=== PATIENT | female | born 1990 | race African-American/Black ===

== ENCOUNTER 2016-09-25 11:16 | Emergency (ER) | payer MEDICAID, OTHER ==
[~2016-09-25] VITALS: Ht 162.6 cm; Wt 72.0 kg
[~2016-09-25 11:16] MED LIST: PREN1CAP20 PO
[2016-09-25 11:18] VITALS: BP 130/67; PULSE 76; RESP 16; TEMP 99; O2SAT 100
--- NOTE | 2016-09-25 11:55 | PD ---
HPI Chief Complaint: Abdominal Pain Time Seen by Provider: 11:52 Travel History International Travel<30 days: No Contact w/Intl Traveler<30days: No Traveled to known affect area: No History of Present Illness HPI 26-year-old female with history of no significant past medical issues, presents to the ER today for 2 weeks history of intermittent pelvic discomfort which she states is not currently hurting now. She states that she had a positive test last week, but then went to the health department and her urine test there was negative several days ago. She has been having some nausea and intermittent vomiting and diarrhea. She denies any fevers, or any other symptoms. Modifying Factors: None Associated Signs & Symptoms: Nausea, vomiting, diarrhea, lower abdominal pains intermittently for about 2 weeks Risk Factors: None PFSH Past Medical History ADHD: No Depression: Yes Cancer: No Cardiovascular Problems: No Developmental Delay: No Diabetes: No Diminished Hearing: No Headaches: No Psychiatric: Yes (BIPOLAR AND DEPRESSION BY HX) Migraines: No Seizures: Yes (BY HX AGE 15) Thyroid Disease: No Ulcer: No ?: Unknown LMP: 07/2016 : 0 Para: 2 : 0 Past Surgical History Appendectomy: No Cholecystectomy: No Other Surgery: No Social History Alcohol Use: No Tobacco Use: Yes (approximates 3 cigarettes daily throughout her entire ) Substance Use: Yes (MARIJUANA A MONTH AGO) Allergies-Medications (Allergen,Severity, Reaction): Coded Allergies: Pea (Verified Allergy, Severe, Rash, 01/19/15) Potato (Verified Allergy, Severe, Rash, 01/19/15) Reported Meds & Prescriptions Reported Meds & Active Scripts Active Prenate Mini 18-0.6-0.4-350 mg ( W/O Vit A W/ Fe Carbo) 1 Cap Cap 1 Tab PO DAILY Review of Systems Except as stated in HPI: all other systems reviewed are Neg Physical Exam Narrative GENERAL: Well-developed young after [place] female patient currently not in acute distress. Awake and oriented 3. SKIN: Focused skin assessment warm/dry. HEAD: Atraumatic. Normocephalic. EYES: Pupils equal and round. No scleral icterus. No injection or drainage. ENT: No nasal bleeding or discharge. Mucous membranes pink and moist. NECK: Trachea midline. No JVD. CARDIOVASCULAR: Regular rate and rhythm. No murmur appreciated. RESPIRATORY: No accessory muscle use. Clear to auscultation. Breath sounds equal bilaterally. GASTROINTESTINAL: Abdomen soft, non-tender, nondistended. Hepatic and splenic margins not palpable. Benign. MUSCULOSKELETAL: No obvious deformities. No clubbing. No cyanosis. No edema. NEUROLOGICAL: Awake and alert. No obvious cranial nerve deficits. Motor grossly within normal limits. Normal speech. PSYCHIATRIC: Appropriate mood and affect; insight and judgment normal. Data Data Last Documented VS Vital Signs Date Time Temp Pulse Resp B/P Pulse Ox O2 Delivery O2 Flow Rate FiO2 09/25/16 11:18 99.0 76 16 130/67 100 Room Air Orders Complete Blood Count With Diff (09/25/16 11:52) Comprehensive Metabolic Panel (09/25/16 11:52) Beta Hcg (Quant/Titer) (09/25/16 11:52) Urinalysis - C+S If Indicated (09/25/16 12:53) Labs Laboratory Tests Test 09/25/16 09/25/16 12:00 13:08 White Blood Count 4.7 TH/MM3 Red Blood Count 4.50 MIL/MM3 Hemoglobin 12.3 GM/DL Hematocrit 36.3 % Mean Corpuscular Volume 80.7 FL Mean Corpuscular Hemoglobin 27.4 PG Mean Corpuscular Hemoglobin 34.0 % Concent Red Cell Distribution Width 15.0 % Platelet Count 300 TH/MM3 Mean Platelet Volume 7.9 FL Neutrophils (%) (Auto) 51.3 % Lymphocytes (%) (Auto) 37.9 % Monocytes (%) (Auto) 6.1 % Eosinophils (%) (Auto) 4.3 % Basophils (%) (Auto) 0.4 % Neutrophils # (Auto) 2.4 TH/MM3 Lymphocytes # (Auto) 1.8 TH/MM3 Monocytes # (Auto) 0.3 TH/MM3 Eosinophils # (Auto) 0.2 TH/MM3 Basophils # (Auto) 0.0 TH/MM3 CBC Comment DIFF FINAL Differential Comment Sodium Level 140 MEQ/L Potassium Level 3.7 MEQ/L Chloride Level 106 MEQ/L Carbon Dioxide Level 28.0 MEQ/L Anion Gap 6 MEQ/L Blood Urea Nitrogen 7 MG/DL Creatinine 0.64 MG/DL Estimat Glomerular Filtration 137 ML/MIN Rate Random Glucose 86 MG/DL Calcium Level 8.6 MG/DL Total Bilirubin 0.3 MG/DL Aspartate Amino Transf 11 U/L (AST/SGOT) Alanine Aminotransferase 19 U/L (ALT/SGPT) Alkaline Phosphatase 56 U/L Total Protein 8.2 GM/DL Albumin 4.0 GM/DL Human Chorionic Gonadotropin, 13 MIU/ML Quant Urine Color YELLOW Urine Turbidity HAZY Urine pH 7.0 Urine Specific [place] 1.023 Urine Protein TRACE mg/dL Urine Glucose (UA) NEG mg/dL Urine Ketones NEG mg/dL Urine Occult Blood TRACE Urine Nitrite NEG Urine Bilirubin NEG Urine Urobilinogen LESS THAN 2.0 MG/DL Urine Leukocyte Esterase TRACE Urine RBC 6 /hpf Urine WBC 1 /hpf Urine Squamous Epithelial 8 /hpf Cells Urine Mucus FEW /lpf Microscopic Urinalysis Comment CULT NOT INDICATED MDM Medical Decision Making Medical Screen Exam Complete: Yes Emergency Medical Condition: Yes Medical Record Reviewed: Yes Interpretation(s) Laboratory Tests Test 09/25/16 12:00 Eosinophils (%) (Auto) 4.3 % (0.0-4.0) Aspartate Amino Transf 11 U/L (15-37) (AST/SGOT) Human Chorionic Gonadotropin, 13 MIU/ML (0-5) Quant Differential Diagnosis Nausea, vomiting, lower abdominal pains, diarrheaUTI versus versus gastroenteritis Narrative Course Abdomen is soft and benign, and I do not suspect an acute intra-abdominal process. She has not had vomiting today. UA did not show signs UTI. Her urine test was trace positive and her hCG is 13. At this point, it appears that she may have an early . My plan would be to release her with follow-up to health department for and follow-up with . Return for any worsening in pain, bleeding, and as needed. An ectopic cannot be ruled out at this point, numbers would indicate that she is fairly early. She should return for any worsening in pain and bleeding. Diagnosis Primary Impression: Abdominal pain in Disposition: 01 DISCHARGE HOME Condition: Stable Sara Vivar MD September 25, 2016 11:55
[2016-09-25 12:22] LABS: AUTOMATED NEUTROPHIL # 2.4 TH/MM3 (1.8-7.7); BASOPHIL % 0.4 % (0.0-2.0); EOSINOPHIL # 0.2 TH/MM3 (0-0.4); EOSINOPHIL % 4.3 % (0.0-4.0); HEMATOCRIT 36.3 % (35.0-46.0); HEMO FLAGS DIFF FINAL; LYMPH % 37.9 % (9.0-44.0); LYMPHOCYTE # 1.8 TH/MM3 (1.0-4.8); MEAN CELL VOLUME 80.7 FL (80.0-100.0); MEAN CORPUSCULAR HEMOGLOBIN 27.4 PG (27.0-34.0); MONO % 6.1 % (0.0-8.0); NEUT % 51.3 % (16.0-70.0); PLATELET COUNT 300 TH/MM3 (150-450); WHITE BLOOD COUNT 4.7 TH/MM3 (4.0-11.0)
[2016-09-25 12:46] LABS: ALT (GPT) 19 U/L (10-53); ANION GAP 6 MEQ/L (5-15); AST (GOT) 11 U/L (15-37); BLOOD UREA NITROGEN 7 MG/DL (7-18); CHLORIDE 106 MEQ/L (98-107); GLOMERULAR FILTRATION RATE 137 ML/MIN (>89); POTASSIUM 3.7 MEQ/L (3.5-5.1); SODIUM (NA) 140 MEQ/L (136-145)
[2016-09-25 12:50] LABS: ALKALINE PHOSPHATASE 56 U/L (45-117); BETA HCG QUANT 13 MIU/ML (0-5); TOTAL BILIRUBIN ADULT 0.3 MG/DL (0.2-1.0)
[2016-09-25 13:23] LABS: BLOOD, URINE TRACE (NEG); COMMENT (UR) CULT NOT INDICATED; CULTURE IF INDICATED CULT NOT INDICATED; GLUCOSE,URINE NEG (NEG); KETONE, URINE NEG (NEG); MUCUS URINE FEW /lpf (OCC); NITRITE,URINE NEG (NEG); SQUAMOUS EPITHELIAL CELL URINE 8 /hpf (0-5); URINE COLOR YELLOW (YELLW/STRAW)
== END 2016-09-25 13:48 | disposition home or self-care (01) ==
LOC: NEPD 11:16
DX: O26.891 Other specified pregnancy related conditions, first trimester (principal); R10.2 Pelvic and perineal pain; Z3A.00 Weeks of gestation of pregnancy not specified
CPT/HCPCS: 80053; 81001; 84702; 85025; 99284

== ENCOUNTER 2016-10-22 11:08 | Emergency (ER) | payer OTHER ==
[~2016-10-22] VITALS: Ht 162.6 cm; Wt 72.0 kg
[2016-10-22 11:09] VITALS: BP 129/63; PULSE 70; RESP 20; TEMP 98.6; O2SAT 100
--- NOTE | 2016-10-22 11:24 | PD ---
Physical Exam Date Seen by Provider: Oct 22, 2016 Time Seen by Provider: 11:33 Data Data Last Documented VS Vital Signs Date Time Temp Pulse Resp B/P Pulse Ox O2 Delivery O2 Flow Rate FiO2 10/22/16 11:09 98.6 70 20 129/63 100 Room Air MDM Supervised Visit with DONTA: No Narrative Course 26 YO F with complaint of abdominal pain, hematemesis, fatigue. Denies vaginal bleeding. LMP October 02. care through second crusher. Vitals reviewed. Patient awaiting bed placement. Dahlia Culp Oct 22, 2016 11:24
[2016-10-22] MEDS ORDERED: SODIUM CHLOR 0.9% 1000 ML INJ 1,000 ML IV SCH (11:57)
[2016-10-22] MEDS ORDERED: SODIUM CHLORIDE 0.9% FLUSH 10 ML FLUSH IV FLUSH PRN (12:00)
--- NOTE | 2016-10-22 12:03 | PD ---
HPI Chief Complaint: Related Problem Time Seen by Provider: 11:59 Travel History International Travel<30 days: No Contact w/Intl Traveler<30days: No Traveled to known affect area: No History of Present Illness HPI Patient comes in complaining of intermittent lower abdominal cramping for over month. Patient reports 2 episodes of vomiting over the past couple of weeks as nonbilious and nonbloody. Patient states she was seen here a month ago told she was followed up with her clinical resource nurse had blood work repeated fround her hCG was 7.4 has performed at an outside lab and has paperwork with her. Patient is just wanting to know if she was and had a spontaneous miscarriage or if she is . Patient also has concerns over feeling lightheaded after one for sitting to standing or after for standing for long periods of time. Patient's is been going on for the past couple weeks. Patient denies any chest pain, shortness of breath, nausea, loss change in bowel or bladder, vaginal discharge, back pain, or headaches. PFSH Past Medical History Hx Anticoagulant Therapy: No ADHD: No Depression: Yes Cancer: No Cardiovascular Problems: No Chemotherapy: No Cerebrovascular Accident: No Developmental Delay: No Diabetes: No Diminished Hearing: No Headaches: No Psychiatric: Yes (BIPOLAR AND DEPRESSION BY HX) Respiratory: No Migraines: No Seizures: Yes (BY HX AGE 15) Thyroid Disease: No Ulcer: No ?: Unknown LMP: Possible miscarriage : 3 Para: 3 : 0 Past Surgical History Appendectomy: No Cholecystectomy: No Hysterectomy: No Other Surgery: No Social History Alcohol Use: No Tobacco Use: Yes (1/2 pack per day ) Substance Use: Yes (MARIJUANA A MONTH AGO) Allergies-Medications (Allergen,Severity, Reaction): Coded Allergies: Pea (Verified Allergy, Severe, Rash, 01/19/15) Potato (Verified Allergy, Severe, Rash, 01/19/15) Reported Meds & Prescriptions Reported Meds & Active Scripts Active Prenate Mini 18-0.6-0.4-350 mg ( W/O Vit A W/ Fe Carbo) 1 Cap Cap 1 Tab PO DAILY Review of Systems Except as stated in HPI: all other systems reviewed are Neg Physical Exam Narrative GENERAL: Well-developed, overly nourished, in no acute distress, and non-ill appearing. SKIN: Focused skin assessment warm and dry. HEAD: Atraumatic. Normocephalic. EYES: Pupils equal and round. EOMI. No scleral icterus. No injection or drainage. ENT: No nasal bleeding or discharge. Mucous membranes pink and moist. NECK: Trachea midline. No JVD. Supple. No nuclear rigidity. CARDIOVASCULAR: Regular rate and rhythm. No murmur appreciated. RESPIRATORY: No accessory muscle use. No respiratory distress. Clear to auscultation. Breath sounds equal bilaterally. GASTROINTESTINAL: Abdomen soft, non-tender, nondistended. Hepatic and splenic margins not palpable. Normal bowel sounds 4. No pulsatile mass. MUSCULOSKELETAL: No obvious deformities. No clubbing. No cyanosis. No edema. Full range of motion. NEUROLOGICAL: Awake and alert. No obvious cranial nerve deficits. Motor grossly within normal limits. Normal speech. PSYCHIATRIC: Appropriate mood and affect; insight and judgment normal. Data Data Last Documented VS Vital Signs Date Time Temp Pulse Resp B/P Pulse Ox O2 Delivery O2 Flow Rate FiO2 10/22/16 12:40 98.8 99 10/22/16 12:34 62 114/68 72 109/66 75 114/76 10/22/16 11:09 20 Room Air Orders Beta Hcg (Quant/Titer) (10/22/16 11:57) Complete Blood Count With Diff (10/22/16 11:57) Comprehensive Metabolic Panel (10/22/16 11:57) Lipase (10/22/16 11:57) Iv Access Insert/Monitor (10/22/16 11:57) Ecg Monitoring (10/22/16 11:57) Oximetry (10/22/16 11:57) Sodium Chlor 0.9% 1000 Ml Inj (Ns 1000 M (10/22/16 11:57) Sodium Chloride 0.9% Flush (Ns Flush) (10/22/16 12:00) Orthostatic Vital Signs (10/22/16 11:57) Urinalysis - C+S If Indicated (10/22/16 12:14) Labs Laboratory Tests Test 10/22/16 12:30 White Blood Count 5.7 TH/MM3 Red Blood Count 4.47 MIL/MM3 Hemoglobin 12.2 GM/DL Hematocrit 36.1 % Mean Corpuscular Volume 80.8 FL Mean Corpuscular Hemoglobin 27.3 PG Mean Corpuscular Hemoglobin 33.7 % Concent Red Cell Distribution Width 15.1 % Platelet Count 327 TH/MM3 Mean Platelet Volume 7.6 FL Neutrophils (%) (Auto) 57.7 % Lymphocytes (%) (Auto) 32.2 % Monocytes (%) (Auto) 6.4 % Eosinophils (%) (Auto) 3.4 % Basophils (%) (Auto) 0.3 % Neutrophils # (Auto) 3.3 TH/MM3 Lymphocytes # (Auto) 1.8 TH/MM3 Monocytes # (Auto) 0.4 TH/MM3 Eosinophils # (Auto) 0.2 TH/MM3 Basophils # (Auto) 0.0 TH/MM3 CBC Comment DIFF FINAL Differential Comment Urine Color YELLOW Urine Turbidity CLEAR Urine pH 7.0 Urine Specific [place] 1.020 Urine Protein NEG mg/dL Urine Glucose (UA) NEG mg/dL Urine Ketones NEG mg/dL Urine Occult Blood NEG Urine Nitrite NEG Urine Bilirubin NEG Urine Urobilinogen LESS THAN 2.0 MG/DL Urine Leukocyte Esterase NEG Urine RBC 6 /hpf Urine WBC 2 /hpf Urine Squamous Epithelial 4 /hpf Cells Urine Mucus FEW /lpf Microscopic Urinalysis Comment CULT NOT INDICATED Sodium Level 140 MEQ/L Potassium Level 4.2 MEQ/L Chloride Level 106 MEQ/L Carbon Dioxide Level 28.9 MEQ/L Anion Gap 5 MEQ/L Blood Urea Nitrogen 7 MG/DL Creatinine 0.64 MG/DL Estimat Glomerular Filtration 137 ML/MIN Rate Random Glucose 85 MG/DL Calcium Level 8.8 MG/DL Total Bilirubin 0.2 MG/DL Aspartate Amino Transf 15 U/L (AST/SGOT) Alanine Aminotransferase 30 U/L (ALT/SGPT) Alkaline Phosphatase 56 U/L Total Protein 8.3 GM/DL Albumin 3.8 GM/DL Lipase 73 U/L Human Chorionic Gonadotropin, LESS THAN 1 Quant MIU/ML [facility] Medical Decision Making Medical Screen Exam Complete: Yes Emergency Medical Condition: Yes Differential Diagnosis , miscarriage, orthostatic hypertension, vertigo, electrolyte abnormality, anemia, ectopic , other Narrative Course Patient was seen and examined. Initial laboratory studies were ordered. IV established. Patient some. Monitor. Patient was not wanting to wait for her lab results secondary to her ride. Based on history and exam, I do not suspect patient has an ectopic or retained products of conception as patient has no abdominal pain, fevers, back pain, vaginal discharge, dysuria, or other symptoms. There is no evidence of acute surgical abdomen at this time. The risks of leaving against medical advice without further evaluation treatment were discussed with the patient. These risks include cardiac dysfunction, cardiac dysrhythmia, possible heart attack, possible stroke or . The patient indicated understanding of these risks and appeared to have the capacity to make this decision. Patient in no obvious distress upon re- evaluation. Pt ambulated without difficulty out of ED AGAINST MEDICAL ADVICE. Diagnosis Primary Impression: Left against medical advice Disposition: AGAINST MEDICAL ADVICE Condition: Stable Tae Miller Oct 22, 2016 12:03
[2016-10-22 12:34] VITALS: BP_SYST 109; BP_SYST 114; BP_DIAS 66; BP_DIAS 68; BP_DIAS 76
[2016-10-22 12:40] VITALS: TEMP 98.8; O2SAT 99
[2016-10-22 12:40] LABS: AUTOMATED NEUTROPHIL # 3.3 TH/MM3 (1.8-7.7); BASOPHIL % 0.3 % (0.0-2.0); EOSINOPHIL # 0.2 TH/MM3 (0-0.4); EOSINOPHIL % 3.4 % (0.0-4.0); HEMATOCRIT 36.1 % (35.0-46.0); HEMO FLAGS DIFF FINAL; LYMPH % 32.2 % (9.0-44.0); LYMPHOCYTE # 1.8 TH/MM3 (1.0-4.8); MEAN CELL VOLUME 80.8 FL (80.0-100.0); MEAN CORPUSCULAR HEMOGLOBIN 27.3 PG (27.0-34.0); MEAN CORPUSCULAR HGB CONC 33.7 % (32.0-36.0); MONO % 6.4 % (0.0-8.0); NEUT % 57.7 % (16.0-70.0); PLATELET COUNT 327 TH/MM3 (150-450); RED BLOOD COUNT 4.47 MIL/MM3 (4.00-5.30); RED CELL DISTRIBUTION WIDTH 15.1 % (11.6-17.2); WHITE BLOOD COUNT 5.7 TH/MM3 (4.0-11.0)
[2016-10-22 12:54] LABS: BLOOD, URINE NEG (NEG); COMMENT (UR) CULT NOT INDICATED; CULTURE IF INDICATED CULT NOT INDICATED; GLUCOSE,URINE NEG (NEG); KETONE, URINE NEG (NEG); MUCUS URINE FEW /lpf (OCC); NITRITE,URINE NEG (NEG); SQUAMOUS EPITHELIAL CELL URINE 4 /hpf (0-5); URINE COLOR YELLOW (YELLW/STRAW)
[2016-10-22 13:10] LABS: ALT (GPT) 30 U/L (10-53); ANION GAP 5 MEQ/L (5-15); AST (GOT) 15 U/L (15-37); BICARBONATE 28.9 MEQ/L (21.0-32.0); BLOOD UREA NITROGEN 7 MG/DL (7-18); CHLORIDE 106 MEQ/L (98-107); GLOMERULAR FILTRATION RATE 137 ML/MIN (>89); POTASSIUM 4.2 MEQ/L (3.5-5.1); SODIUM (NA) 140 MEQ/L (136-145)
[2016-10-22 13:28] LABS: ALKALINE PHOSPHATASE 56 U/L (45-117); BETA HCG QUANT LESS THAN 1 MIU/ML (0-5); TOTAL BILIRUBIN ADULT 0.2 MG/DL (0.2-1.0)
== END 2016-10-22 13:53 | disposition left against medical advice (07) ==
LOC: NEPD 11:08
DX: O26.90 Pregnancy related conditions, unspecified, unspecified trimester (principal); R11.10 Vomiting, unspecified; O99.330 Smoking (tobacco) complicating pregnancy, unspecified trimester
CPT/HCPCS: 80053; 81001; 83690; 84702; 85025; 96360; 99284; J7030

== ENCOUNTER 2017-02-23 14:11 | Emergency (ER) | payer MEDICAID, OTHER ==
[~2017-02-23] VITALS: Ht 162.6 cm; Wt 75.0 kg
[2017-02-23 14:13] VITALS: BP 135/76; PULSE 78; RESP 22; TEMP 99.1; O2SAT 99
--- NOTE | 2017-02-23 14:38 | PD ---
HPI Chief Complaint: GI Complaint Time Seen by Provider: 14:21 Travel History International Travel<30 days: No Contact w/Intl Traveler<30days: No Traveled to known affect area: No History of Present Illness HPI This is a 26-year-old female who is 8 weeks by dates who presents to the emergency department with persistent nausea and vomiting that's been going on for several weeks, constant, severe to the point where she hasn't eaten anything in 3 days. She can't keep anything down. She did have trouble with hyperemesis in her prior pregnancies. She denies any abdominal pain. PFSH Past Medical History Hx Anticoagulant Therapy: No ADHD: No Depression: Yes Cancer: No Cardiovascular Problems: No Chemotherapy: No Cerebrovascular Accident: No Developmental Delay: No Diabetes: No Diminished Hearing: No Headaches: No Psychiatric: Yes (BIPOLAR AND DEPRESSION BY HX) Respiratory: No Migraines: No Seizures: Yes (BY HX AGE 15) Thyroid Disease: No Ulcer: No ?: : 3 Para: 3 : 0 Past Surgical History Appendectomy: No Cholecystectomy: No Hysterectomy: No Other Surgery: No Social History Alcohol Use: No Tobacco Use: Yes (1/2 pack per day ) Substance Use: Yes (MARIJUANA A MONTH AGO) Allergies-Medications (Allergen,Severity, Reaction): Coded Allergies: peas (Unverified Allergy, Severe, Rash, 02/23/17) potato (Unverified Allergy, Severe, Rash, 02/23/17) Reported Meds & Prescriptions Reported Meds & Active Scripts Active No Active Prescriptions or Reported Medications Review of Systems Except as stated in HPI: all other systems reviewed are Neg Physical Exam Narrative GENERAL: Gagging and spitting in the emergency department. SKIN: Focused skin assessment warm and dry. HEAD: Atraumatic. Normocephalic. EYES: Pupils equal and round. No injection or drainage. ENT: Moist mucous membranes NECK: Trachea midline. CARDIOVASCULAR: Regular rate and rhythm. No murmur appreciated. RESPIRATORY: Clear to auscultation. Breath sounds equal bilaterally. GASTROINTESTINAL: Abdomen soft, mildly tender to palpation in the epigastrium with no rebound or guarding. MUSCULOSKELETAL: No obvious deformities. NEUROLOGICAL: Awake and alert. No obvious cranial nerve deficits. Moving all extremities. PSYCHIATRIC: Appropriate mood and affect; insight and judgment normal. Data Data Last Documented VS Vital Signs Date Time Temp Pulse Resp B/P (MAP) Pulse Ox O2 Delivery O2 Flow Rate FiO2 02/23/17 14:39 18 02/23/17 14:13 99.1 78 135/76 (95) 99 Orders Orders Complete Blood Count With Diff (02/23/17 14:36) Comprehensive Metabolic Panel (02/23/17 14:36) ^ Insert Iv (02/23/17 14:36) Sodium Chlor 0.9% 1000 Ml Inj (Ns 1000 M (02/23/17 14:45) Ondansetron Inj (Zofran Inj) (02/23/17 14:45) Labs Laboratory Tests Test 02/23/17 14:55 White Blood Count 11.3 TH/MM3 Red Blood Count 4.29 MIL/MM3 Hemoglobin 12.5 GM/DL Hematocrit 36.0 % Mean Corpuscular Volume 83.9 FL Mean Corpuscular Hemoglobin 29.2 PG Mean Corpuscular Hemoglobin Concent 34.8 % Red Cell Distribution Width 14.8 % Platelet Count 286 TH/MM3 Mean Platelet Volume 7.7 FL Neutrophils (%) (Auto) 79.4 % Lymphocytes (%) (Auto) 16.0 % Monocytes (%) (Auto) 3.8 % Eosinophils (%) (Auto) 0.5 % Basophils (%) (Auto) 0.3 % Neutrophils # (Auto) 9.0 TH/MM3 Lymphocytes # (Auto) 1.8 TH/MM3 Monocytes # (Auto) 0.4 TH/MM3 Eosinophils # (Auto) 0.1 TH/MM3 Basophils # (Auto) 0.0 TH/MM3 CBC Comment DIFF FINAL Differential Comment Blood Urea Nitrogen 6 MG/DL Creatinine 0.60 MG/DL Random Glucose 76 MG/DL Total Protein 8.0 GM/DL Albumin 3.7 GM/DL Calcium Level 8.8 MG/DL Alkaline Phosphatase 46 U/L Aspartate Amino Transf (AST/SGOT) 13 U/L Alanine Aminotransferase (ALT/SGPT) 19 U/L Total Bilirubin 0.4 MG/DL Sodium Level 136 MEQ/L Potassium Level 4.0 MEQ/L Chloride Level 102 MEQ/L Carbon Dioxide Level 25.5 MEQ/L Anion Gap 9 MEQ/L Estimat Glomerular Filtration Rate 147 ML/MIN MDM Medical Decision Making Medical Screen Exam Complete: Yes Emergency Medical Condition: Yes Interpretation(s) afebrile, no tachycardia, normotensive leukocytosis electrolytes within normal limits Differential Diagnosis hyperemesis gravidarum, electrolyte abnormality, dehydration, renal failure Narrative Course This is a 26-year-old female who is early regnant who presents to the emergency department with nausea vomiting. She appears well on exam. Labs are reassuring with no evidence of dehydration. She was given Zofran and IV fluids and she feels much better. She says Zofran as worked for her in the past. I also recommended Unisom. I think she is safe for outpatient management of hyperemesis gravidarum. Diagnosis Primary Impression: Hyperemesis gravidarum Patient Instructions: General Instructions Additional Instructions: If you develop severe or worsening abdominal pain, fever>100.4, persistent vomiting or inability to eat or drink return to the emergency department immediately. Follow up with your primary care physician in 1-2 days for a check-up. Med/Other Pt SpecificInfo: Prescription(s) given Scripts Doxylamine Succinate (Unisom Sleep Aid) 25 Mg Tablet 1 TAB PO HS Y for NAUSEA, #15 Prov: Sandra Shahid MD 02/23/17 Ondansetron Odt (Zofran Odt) 4 Mg Tab 4 MG SL Q6HR Y for Nausea/Vomiting, #20 TAB 0 Refills Prov: Sandra Shahid MD 02/23/17 Disposition: 01 DISCHARGE HOME Condition: Stable Sandra Shahid MD Feb 23, 2017 14:38
[2017-02-23] MEDS ORDERED: SODIUM CHLOR 0.9% 1000 ML INJ 1,000 ML IV ONE (14:45)
[2017-02-23] MEDS ORDERED: ONDANSETRON HCL 4 MG/2 ML VIAL IV PUSH ONE (14:45)
[2017-02-23 15:11] LABS: BASOPHIL % 0.3 % (0.0-2.0); EOSINOPHIL # 0.1 TH/MM3 (0-0.4); EOSINOPHIL % 0.5 % (0.0-4.0); HEMO FLAGS DIFF FINAL; LYMPHOCYTE # 1.8 TH/MM3 (1.0-4.8); MEAN CELL VOLUME 83.9 FL (80.0-100.0); MEAN CORPUSCULAR HEMOGLOBIN 29.2 PG (27.0-34.0); MEAN CORPUSCULAR HGB CONC 34.8 % (32.0-36.0); MONO % 3.8 % (0.0-8.0); NEUT % 79.4 % (16.0-70.0); PLATELET COUNT 286 TH/MM3 (150-450); RED BLOOD COUNT 4.29 MIL/MM3 (4.00-5.30); RED CELL DISTRIBUTION WIDTH 14.8 % (11.6-17.2); WHITE BLOOD COUNT 11.3 TH/MM3 (4.0-11.0)
[2017-02-23 15:29] LABS: ALKALINE PHOSPHATASE 46 U/L (45-117); TOTAL BILIRUBIN ADULT 0.4 MG/DL (0.2-1.0)
[2017-02-23 15:46] LABS: ALT (GPT) 19 U/L (10-53); ANION GAP 9 MEQ/L (5-15); AST (GOT) 13 U/L (15-37); BICARBONATE 25.5 MEQ/L (21.0-32.0); BLOOD UREA NITROGEN 6 MG/DL (7-18); CHLORIDE 102 MEQ/L (98-107); GLOMERULAR FILTRATION RATE 147 ML/MIN (>89); SODIUM (NA) 136 MEQ/L (136-145)
[2017-02-23] MEDS ORDERED: UNIS25TA3 PO (16:12)
[2017-02-23] MEDS ORDERED: ZOFR4TAB3 SL (16:12)
[2017-02-23 16:28] VITALS: BP 127/62
== END 2017-02-23 16:30 | disposition home or self-care (01) ==
LOC: NEPD 14:11
DX: O21.0 Mild hyperemesis gravidarum (principal); Z3A.08 8 weeks gestation of pregnancy
CPT/HCPCS: 80053; 85025; 96361; 96374; 99284; J2405; J7030

== ENCOUNTER 2017-04-14 19:42 | Emergency (ER) | payer OTHER, MEDICAID ==
[~2017-04-14] VITALS: Ht 162.6 cm; Wt 73.0 kg
[~2017-04-14 19:42] MED LIST changes: -PREN1CAP20 PO; +UNIS25TA3 PO; +ZOFR4TAB3 SL
[2017-04-14 19:50] VITALS: BP 121/62; PULSE 82; RESP 16; TEMP 98.6; O2SAT 100
[2017-04-14 20:31] LABS: BACTERIA, URINE RARE /hpf; BILIRUBIN, URINE NEG (NEG); BLOOD, URINE SMALL (NEG); GLUCOSE,URINE NEG (NEG); KETONE, URINE NEG (NEG); NITRITE,URINE NEG (NEG); PH, URINE 6.5 (5.0-8.5); SQUAMOUS EPITHELIAL CELL URINE 7 /hpf (0-5); URINE COLOR LIGHT-YELLOW (YELLW/STRAW); URINE LEUKOCYTE ESTERASE LARGE (NEG)
[2017-04-14] MEDS ORDERED: ACETAMINOPHEN 325 MG TAB PO ONE (20:45)
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
== END 2017-04-14 23:23 | disposition home or self-care (01) ==
LOC: NEPE 19:42
DX: O26.892 Other specified pregnancy related conditions, second trimester (principal); R10.9 Unspecified abdominal pain; O99.342 Other mental disorders complicating pregnancy, second trimester; F31.9 Bipolar disorder, unspecified; R56.9 Unspecified convulsions; Z3A.18 18 weeks gestation of pregnancy
CPT/HCPCS: 81001; 85384; 86850; 86900; 86901; 99284

== ENCOUNTER 2017-05-28 17:01 | Emergency (ER) | payer MEDICAID ==
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
== END 2017-05-28 18:49 | disposition home or self-care (01) ==
LOC: HOBED 17:01
DX: O47.02 False labor before 37 completed weeks of gestation, second trimester (principal); Z3A.21 21 weeks gestation of pregnancy
CPT/HCPCS: 99284

== ENCOUNTER 2017-07-28 10:25 | Emergency (ER) | payer MEDICAID ==
[2017-07-28 10:55] VITALS: BP 121/60; PULSE 81
--- NOTE | 2017-07-28 11:22 | PD ---
HPI Travel History International Travel<30 Days: No Contact w/Intl Traveler<30Days: No (Dameon Garcia MD R1) History of Present Illness HPI Patient is a 27-year-old at 20/06 presenting for lower abdominal pain. She states she has had lower abdominal pain for the past month. She notes it to be sharp, worsens throughout the day, stays in the lower abdomen. She also reports a popping sensation every morning which "sounds like a dislocation." She denies any difficulty walking, does not believe that she has dislocated anything at this time. Denies contractions, large gushes of fluid, abnormally colored or malodorous discharge, bloody discharge, dysuria, hematuria, frequency , change in urine color/smell, nausea, vomiting, fever, chills, headache, lightheadedness, dizziness. Weeks Gestation: 30 Para: 3 : 5 Miscarriage: 1 : 0 (Dameon Garcia MD R1) History Past Medical History Medical History: Denies Significant Hx (Dameon Garcia MD) Past Surgical History Surgical History: No Previous Surgery (Dameon Garcia MD) Family History Family History: Negative (Dameon Garcia MD) Social History Alcohol Use: No Tobacco Use: No Substance Abuse: Yes (Occasional marijuana) (Dameon Garcia MD) Allergies-Medications (Allergen,Severity, Reaction): Coded Allergies: No Known Allergies (Unverified , 04/14/17) Review of Systems General / Constitutional: No: Fever, Chills Eyes: No: Diploplia, Blurred Vision, Visual changes, Pain HENT: No: Headaches, Vertigo, Lightheadedness Cardiovascular: No: Irregular Rhythm, Chest Pain or Discomfort, Palpitations Respiratory: No: Cough, Short of Breath, Wheezing Gastrointestinal: Abdominal Pain, No: Nausea, Vomiting, Diarrhea, Hematemesis, Hematochezia, Constipation, Changes in Bowel Habits, Indigestion, Loss of Appetite Genitourinary: No: Urgency, Frequency, Dysuria, Nocturia, Hematuria Musculoskeletal: No: Limited ROM, Weakness Skin: No Rash, No Itching, No Dryness Neurologic: No: Weakness, Dizziness Psychiatric: No: Anxiety, Depression Endocrine: No: Polydipsia, Polyuria Hematologic/Lymphatic: No Easy Bruising, No Lymph Node Enlargement (Dameon Garcia MD R1) Physical Exam Narrative GENERAL: Well-nourished, well-developed patient. SKIN: Warm and dry. HEAD: Normocephalic and atraumatic. EYES: No scleral icterus. No injection or drainage. ENT: No nasal drainage noted. Mucous membranes pink. Airway patent. NECK: Supple, trachea midline. No JVD. CARDIOVASCULAR: Regular rate and rhythm without murmurs, gallops, or rubs. RESPIRATORY: Breath sounds equal bilaterally. No accessory muscle use. ABDOMEN/GI: Abdomen soft, non-tender, bowel sounds present, no rebound, no guarding GENITOURINARY: FHT's: Category: 1 Baseline: 130s Reactive: Yes Variability: Moderate Decels: None EXTREMITIES: No cyanosis or edema. BACK: Nontender without obvious deformity. No CVA tenderness. NEUROLOGICAL: Awake and alert. Motor and sensory grossly within normal limits. Five out of 5 muscle strength in all muscle groups. Normal speech. (Dameon Garcia MD R1) Data Data Vital Signs Reviewed: Yes Orders Orders Vital Signs (Adult) .ON ADMISSION (07/28/17 10:38) ^ Labor Status (07/28/17 10:38) ^ Non Stress Test (07/28/17 10:38) Urinalysis - C+S If Indicated (07/28/17 11:04) (Dameon Garcia MD R1) MDM Plan Patient is a 27-year-old at 20/06 who has abdominal pain, and a popping sensation in her pubic bone. No complaints. Likely pubic diastasis. Discussed with patient and she expressed understanding. - FHT category 1, reassuring - Likely pubic diastasis. Discussed with patient and she expressed understanding. - Continue routine antepartum care - Return to OB for signs of labor, any other concerning signs.symptoms DW Dr. Drake (Dameon Garcia MD R1) Attending Attestation Patient seen and evaluated with resident under direct supervision, agree with assessment and plan. (Jam Drake MD) Diagnosis Diagnosis: Primary Impression: Abdominal pain in Qualified Codes: O26.893 - Other specified related conditions, third trimester; R10.9 - Unspecified abdominal pain Additional Impression: 30 weeks gestation of Disposition: DISCHARGE HOME Condition: Stable Patient Instructions: Abdominal Pain in (ED), General Instructions Dameon Garcia MD R1 Jul 28, 2017 11:22 Jam Drake MD Jul 28, 2017 13:10
[2017-07-28 12:15] LABS: BILIRUBIN, URINE NEG (NEG); BLOOD, URINE TRACE (NEG); GLUCOSE,URINE NEG (NEG); KETONE, URINE NEG (NEG); MUCUS URINE FEW /lpf (OCC); NITRITE,URINE NEG (NEG); SQUAMOUS EPITHELIAL CELL URINE 17 /hpf (0-5); URINE COLOR YELLOW (YELLW/STRAW); URINE LEUKOCYTE ESTERASE LARGE (NEG)
== END 2017-07-28 12:49 | disposition home or self-care (01) ==
LOC: HOBED 10:25
DX: O26.893 Other specified pregnancy related conditions, third trimester (principal); R10.30 Lower abdominal pain, unspecified; Z3A.30 30 weeks gestation of pregnancy
CPT/HCPCS: 81001; 99283

== ENCOUNTER 2017-08-07 04:11 | Emergency (ER) | payer MEDICAID ==
--- NOTE | 2017-08-07 04:55 | PD ---
HPI Chief Complaint Spotting and cramping after intercourse Date Seen: Aug 07, 2017 Time Seen: 04:48 Travel History International Travel<30 Days: No Contact w/Intl Traveler<30Days: No Known Affected Area: No History of Present Illness HPI 27-year-old black female at 31 weeks sees Kaylan Isaacs for care and presents complaining of spotting and cramping after intercourse. heart tones are reactive and she is having no regular contractions. Membranes intact and no gross vaginal bleeding noted Weeks Gestation: 31 Para: 3 : 5 Last Menstrual Period: Aug 07, 2017 Miscarriage: 1 History Obstetric History Obstetric History 3 vaginal deliveries 1 early loss Social History Alcohol Use: No Tobacco Use: No Substance Abuse: No Allergies-Medications (Allergen,Severity, Reaction): Coded Allergies: No Known Allergies (Unverified , 04/14/17) Review of Systems General / Constitutional: No: Fever, Weight Gain, Chills, Other Eyes: No: Diploplia, Blurred Vision, Visual changes, Pain, Photophobia HENT: No: Headaches, Vertigo, Lightheadedness Cardiovascular: No: Irregular Rhythm, Chest Pain or Discomfort, Palpitations, Tachycardia, Syncope, Varicosities, Edema, Cyanosis Respiratory: No: Cough, Short of Breath, Other Gastrointestinal: Abdominal Pain, No: Nausea, Vomiting, Diarrhea Genitourinary: Vaginal Bleeding, No: Decreased Urinary Output, Oliguria Musculoskeletal: No: Limited ROM, Weakness, Cramping, Edema, Pain Skin: No Rash, No Itching, No Dryness, No Lumps, No Change in Pigmentation, No Change in Nails, No Alopecia, No Lesions Neurologic: No: Weakness, Dizziness, Syncope, Focal Abnormalities, Coordination Problem, Headache, Slurred Speech, Seizures Psychiatric: No: Depression, Suicidal Ideations, Homicidal Ideation Endocrine: No: Heat Intolerance, Cold Intolerance, Polydipsia, Polyuria, Other Physical Exam Narrative GENERAL: Well-nourished, well-developed patient. SKIN: Warm and dry. HEAD: Normocephalic and atraumatic. EYES: No scleral icterus. No injection or drainage. ENT: No nasal drainage noted. Mucous membranes pink. Airway patent. NECK: Supple, trachea midline. No JVD. CARDIOVASCULAR: Regular rate and rhythm without murmurs, gallops, or rubs. RESPIRATORY: Breath sounds equal bilaterally. No accessory muscle use. BREASTS: Bilateral exam showed no masses , no retractions, no nipple discharge. ABDOMEN/GI: Abdomen soft, 1+tender, bowel sounds present, no rebound, no guarding Gravid to [-31] weeks size Fundal Height: [-31] GENITOURINARY: External Genitalia: intact and normal in appearance no blood seen Cervix: [Closed posterior-] Dilatation: [-Closed] Effacement: [-Thick] Station: [-3] Membranes: [intact ] Uterine Contractions: [none-] FHT's: Category: [1-] Baseline: [133-] Reactive: [R-] Variability: [mod-] Decels: [none-] EXTREMITIES: No cyanosis or edema. BACK: Nontender without obvious deformity. No CVA tenderness. NEUROLOGICAL: Awake and alert. Motor and sensory grossly within normal limits. Five out of 5 muscle strength in all muscle groups. Normal speech. Data Data Labs Urine dip on OB ED was positive for blood otherwise negative MDM Interpretation(s) 27-year-old black female at 31 weeks sees Kaylan Isaacs for care presents complaining of cramping and spotting after intercourse, no leakage of fluid. heart tones are reactive with no contractions seen cervix closed thick and posterior, urinalysis shows blood otherwise negative, no blood seen on physical exam or on the exam glove Plan Plan to monitor for contractions check the urinalysis and the main lab likely be able to discharge home if we do not see any bleeding here or pickup contractions , she may use Tylenol as needed for cramps, increase p.o. fluids for hydration, heating pad on low across the abdomen or back or hot bath for symptom relief Diagnosis Diagnosis: Primary Impression: Abdominal pain in Additional Impressions: Postcoital bleeding 31 weeks gestation of Disposition: 01 DISCHARGE HOME Condition: Stable Patient Instructions: General Instructions, Labor (ED), Having Your Baby: The Labor Process (GEN), Movement (ED), Abdominal Pain in (ED) Departure Forms: Tests/Procedures Devon Gutierrez II, MD Aug 07, 2017 04:55
[2017-08-07] MEDS ORDERED: LACTATED RINGER'S 1000 ML INJ 1,000 ML IV SCH (04:58)
[2017-08-07] MEDS ORDERED: TERBUTALINE INJ 1 MG/ML AMP SQ PRN (05:00)
[2017-08-07 05:08] VITALS: BP 112/57; PULSE 78
[2017-08-07 05:24] LABS: BILIRUBIN, URINE NEG (NEG); BLOOD, URINE SMALL (NEG); GLUCOSE,URINE NEG (NEG); KETONE, URINE NEG (NEG); MUCUS URINE FEW /lpf (OCC); NITRITE,URINE NEG (NEG); PH, URINE 6.5 (5.0-8.5); SQUAMOUS EPITHELIAL CELL URINE <1 /hpf (0-5); TRANSITIONAL EPI CELLS, URINE <1 /hpf; URINE COLOR LIGHT-YELLOW (YELLW/STRAW); URINE LEUKOCYTE ESTERASE TRACE (NEG)
== END 2017-08-07 05:43 | disposition home or self-care (01) ==
LOC: HOBED 04:11
DX: O26.853 Spotting complicating pregnancy, third trimester (principal); R10.9 Unspecified abdominal pain; Z3A.31 31 weeks gestation of pregnancy
CPT/HCPCS: 59025; 80307; 81001; 96372; 99283; G0481; J3105

== ENCOUNTER 2017-08-08 01:44 | Emergency (ER) | payer MEDICAID ==
--- NOTE | 2017-08-08 02:29 | PD ---
HPI Chief Complaint Pelvic pressure Date Seen: Aug 08, 2017 Time Seen: 02:25 Travel History International Travel<30 Days: No Contact w/Intl Traveler<30Days: No Known Affected Area: No History of Present Illness HPI 27-year-old who is at 31 weeks and 5 days comes in complaining of pelvic pressure. She was seen early this morning due to abdominal pain and intermittent contractions and was given a dose of terbutaline but her cervix was closed and patient was not in labor at this time. Patient has no history of labor and has had 3 prior term pregnancies all vaginally smallest baby was 8 lbs. 5 oz. Patient states were moderate and is just a feeling of pelvic pressure and suprapubic pressure. Patient denies bleeding vaginal discharge or ruptured membranes Weeks Gestation: 31 Para: 3 : 5 History Past Medical History Medical History: Denies Significant Hx Obstetric History Obstetric History Spontaneous vaginal deliveries 3 Past Surgical History Surgical History: No Previous Surgery Family History Family History: Negative Social History Alcohol Use: No Tobacco Use: No Substance Abuse: No Allergies-Medications (Allergen,Severity, Reaction): Coded Allergies: No Known Allergies (Unverified , 04/14/17) Review of Systems Except as stated in HPI: all other systems reviewed are Neg Physical Exam Narrative GENERAL: Well-nourished, well-developed patient. SKIN: Warm and dry. HEAD: Normocephalic and atraumatic. EYES: No scleral icterus. No injection or drainage. ENT: No nasal drainage noted. Mucous membranes pink. Airway patent. NECK: Supple, trachea midline. No JVD. CARDIOVASCULAR: Regular rate and rhythm without murmurs, gallops, or rubs. RESPIRATORY: Breath sounds equal bilaterally. No accessory muscle use. ABDOMEN/GI: Abdomen soft, non-tender, bowel sounds present, no rebound, no guarding Gravid to [-] 34 weeks size Fundal Height: [-] GENITOURINARY: External Genitalia: intact and normal in appearance BUS glands: [-] Normal Cervix: [-] Posterior Dilatation: [-] Closed Effacement: [-] 0 Station: [-] High Presentation: [-] Breech Membranes: [intact or ruptured] intact Uterine Contractions: [-] Absent FHT's: Category: [-] 1 Baseline: [-] 140 Reactive: [-] Moderate Variability: [-] Moderate Decels: [-] Absent EXTREMITIES: No cyanosis or edema. BACK: Nontender without obvious deformity. No CVA tenderness. NEUROLOGICAL: Awake and alert. Motor and sensory grossly within normal limits. Five out of 5 muscle strength in all muscle groups. Normal speech. Data Data Vital Signs Reviewed: Yes MDM Medical Record Reviewed: Yes Narrative Course / MDM 27-year-old who is at 31 weeks 5 weeks with pelvic pressure. Patient has no symptoms of labor, no contractions, cervix is closed, long ,high Plan Discharge home with follow-up to OB provider this week Diagnosis Diagnosis: Primary Impression: 31 weeks gestation of Additional Impression: Feeling pelvic pressure during in third trimester, antepartum Disposition: DISCHARGE HOME Patient Instructions: General Instructions, Labor (ED), Movement (ED) Additional Instructions: DRINK PLENTY OF WATER DURING THE DAY, RETURN IF LEAKING FLUID, VAGINAL BLEEDING , STRONG CONTRACTIONS OR DECREASE IN MOVEMENT. FOLLOW UP WITH YOUR OB DR IN AM AND KEEP ALL UPCOMING OB APPTS. Departure Forms: Tests/Procedures Jennifer Alford MD Aug 08, 2017 02:29
== END 2017-08-08 02:30 | disposition home or self-care (01) ==
LOC: HOBED 01:44
DX: O26.893 Other specified pregnancy related conditions, third trimester (principal); R10.2 Pelvic and perineal pain; Z3A.31 31 weeks gestation of pregnancy
CPT/HCPCS: 99283

== ENCOUNTER 2017-09-01 08:32 | Emergency (ER) | payer MEDICAID ==
[2017-09-01 08:48] VITALS: RESP 18; TEMP 98.1
[2017-09-01 08:49] VITALS: BP 120/56; PULSE 84
--- NOTE | 2017-09-01 09:17 | PD ---
HPI Chief Complaint decreased movement Date Seen: Sep 01, 2017 Time Seen: 09:00 Travel History International Travel<30 Days: No Contact w/Intl Traveler<30Days: No Known Affected Area: No History of Present Illness HPI Ms Monge is a 27YO at 35/1 weeks followed by Kaylan Isaacs who p/w report of decreased movement this morning. Pt first three pregnancies all delivered and each was induced 1 week post-term. Fourth spontaneous miscarriage in 1st trimester. 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 Pt reports no LOF or VB, no ctx, no STI hx, no pain. Pt reports occasional sharp stabbing CP not present today, no SOB, N/V/D, and no leg pain. Pt takes no medications including no PNV. On the monitor fetus has a good tracing and mom is reassuring and wants to go home. Weeks Gestation: 35 Para: 3 : 5 Miscarriage: 1 : 0 History Past Medical History Narrative Medical heartburn Obstetric History Obstetric History 3x with induction 1 week post term for 1st three pregnancies--all with no complications 1x spontaneous miscarriage 1st trimester (her last ) Past Surgical History Surgical History: No Previous Surgery Family History Narrative Family History Mother - HTN, DM Grandmother - "hole in her heart" Maternal aunt - heart murmur Father - does not know Family History: Negative Social History Alcohol Use: No Tobacco Use: No Substance Abuse: No Allergies-Medications (Allergen,Severity, Reaction): Coded Allergies: No Known Allergies (Unverified , 04/14/17) Narrative Medication states she takes no medications, no PNV Review of Systems General / Constitutional: No: Fever, Chills Eyes: No: Visual changes HENT: No: Headaches Cardiovascular: Chest Pain or Discomfort (occasional, stabbing, but not today) , No: Palpitations Respiratory: Short of Breath (exertional), No: Cough Gastrointestinal: No: Nausea, Vomiting, Diarrhea, Abdominal Pain, Constipation Genitourinary: No: Dysuria, Pelvic Pain, Discharge, Vaginal Bleeding Musculoskeletal: No: Weakness, Cramping, Edema Skin: No Rash Neurologic: No: Weakness, Dizziness, Headache Physical Exam Vital Signs Date Time Temp Pulse Resp B/P (MAP) Pulse Ox O2 Delivery O2 Flow Rate FiO2 09/01/17 08:49 84 120/56 (77) 09/01/17 08:48 98.1 18 Narrative GENERAL: Well-nourished, well-developed patient lying in bed in NAD. SKIN: Warm and dry. No lesions, rashes or ecchymoses. HEAD: Normocephalic and atraumatic. EYES: No scleral icterus. No injection or drainage. EOMI. ENT: No nasal drainage noted. Mucous membranes pink. Airway patent. NECK: Supple, trachea midline. No JVD. CARDIOVASCULAR: Regular rate and rhythm without murmurs, gallops, or rubs. RESPIRATORY: Breath sounds equal bilaterally. No accessory muscle use. No increased WOB. Speaks easily in complete sentences. ABDOMEN/GI: Abdomen soft, non-tender, bowel sounds present, no rebound, no guarding Gravid to 35 weeks size GENITOURINARY: Cervix: - Dilatation: - Effacement: - Station: - Presentation: - Membranes: intact Uterine Contractions: absent FHT's: Category: 1 Baseline: 140 Reactive: yes Variability: moderate Decels: absent EXTREMITIES: No cyanosis or edema. BACK: Nontender without obvious deformity. No CVA tenderness. NEUROLOGICAL: Awake and alert. Motor and sensory grossly within normal limits. Five out of 5 muscle strength in all muscle groups. Normal speech. Data Data Vital Signs Reviewed: Yes Orders Orders Vital Signs (Adult) .ON ADMISSION (09/01/17 08:42) ^ Labor Status (09/01/17 08:42) ^ Non Stress Test (09/01/17 08:42) ^ Hydration (09/01/17 08:42) MDM Narrative Course / MDM 27YO 35/1 weeks followed by Kaylan Isaacs p/w decreased movement. FHTs reassuring BL 140, reactive, moderate, no decels. Mom reassured. 1. IUP -[place] and monitor -Encouraged hydration -FHTs reassuring, BL 140, reactive, moderate, absent decels -No ctx -Discharged home after reassurance -F/u with Kaylan Healy and Qi Mckeon Diagnosis Diagnosis: Primary Impression: Decreased movement affecting management of mother, antepartum Qualified Codes: O36.8190 - Decreased movements, unspecified trimester, not applicable or unspecified Additional Impression: Normal , repeat Disposition: 01 DISCHARGE HOME Condition: Stable Candido Taylor MD R1 Sep 01, 2017 09:17
== END 2017-09-01 09:37 | disposition home or self-care (01) ==
LOC: HOBED 08:32
DX: O36.8130 Decreased fetal movements, third trimester, not applicable or unspecified (principal); I10 Essential (primary) hypertension; Z83.3 Family history of diabetes mellitus; Z3A.35 35 weeks gestation of pregnancy
CPT/HCPCS: 59025

== ENCOUNTER 2017-09-09 19:05 | Emergency (ER) | payer MEDICAID ==
[2017-09-09] MEDS ORDERED: MACR100C2 PO (19:40)
--- NOTE | 2017-09-09 19:40 | PD ---
HPI Chief Complaint Low back pain for several hours today Date Seen: Sep 09, 2017 Time Seen: 19:33 Travel History International Travel<30 Days: No Contact w/Intl Traveler<30Days: No Known Affected Area: No History of Present Illness HPI Patient is a 27-year-old black female at 36 weeks who goes to [facility] for care and presents complaining of bad low back pain that has been going on for 1-2 hours today only she did not have this problem before this and has not had it in the past, she denies contractions bleeding or leakage of fluid. heart rate tracing is reactive there are no contractions Weeks Gestation: 36 Para: 3 : 5 History Obstetric History Obstetric History 3 vaginal deliveries 1 early AB Social History Alcohol Use: No Tobacco Use: No Substance Abuse: No Allergies-Medications (Allergen,Severity, Reaction): Coded Allergies: No Known Allergies (Unverified , 04/14/17) Review of Systems General / Constitutional: No: Fever, Weight Gain, Chills, Other Eyes: No: Diploplia, Blurred Vision, Visual changes, Pain, Photophobia HENT: No: Headaches, Vertigo, Lightheadedness Cardiovascular: No: Irregular Rhythm, Chest Pain or Discomfort, Palpitations, Tachycardia, Syncope, Varicosities, Edema, Cyanosis Respiratory: No: Cough, Short of Breath, Other Gastrointestinal: No: Nausea, Vomiting, Diarrhea Genitourinary: No: Decreased Urinary Output, Oliguria Musculoskeletal: No: Limited ROM, Weakness, Cramping, Edema, Pain Skin: No Rash, No Itching, No Dryness, No Lumps, No Change in Pigmentation, No Change in Nails, No Alopecia, No Lesions Neurologic: No: Weakness, Dizziness, Syncope, Focal Abnormalities, Coordination Problem, Headache, Slurred Speech, Seizures Psychiatric: No: Depression, Suicidal Ideations, Homicidal Ideation Endocrine: No: Heat Intolerance, Cold Intolerance, Polydipsia, Polyuria, Other Physical Exam Narrative GENERAL: Well-nourished, well-developed patient. SKIN: Warm and dry. HEAD: Normocephalic and atraumatic. EYES: No scleral icterus. No injection or drainage. ENT: No nasal drainage noted. Mucous membranes pink. Airway patent. NECK: Supple, trachea midline. No JVD. CARDIOVASCULAR: Regular rate and rhythm without murmurs, gallops, or rubs. RESPIRATORY: Breath sounds equal bilaterally. No accessory muscle use. BREASTS: Bilateral exam showed no masses , no retractions, no nipple discharge. ABDOMEN/GI: Abdomen soft, non-tender, bowel sounds present, no rebound, no guarding Gravid to [36-] weeks size Fundal Height: [-36] GENITOURINARY: External Genitalia: intact and normal in appearance BUS glands: [-] Cervix: [post-] Dilatation: [0-] Effacement: [0-] Station: [-3] Presentation: [vtx-] Membranes: [intact ] Uterine Contractions: [-none] FHT's: Category: [-1] Baseline: [133-] Reactive: [R-] Variability: [-mod] Decels: [none-] EXTREMITIES: No cyanosis or edema. BACK: Nontender without obvious deformity. No CVA tenderness. NEUROLOGICAL: Awake and alert. Motor and sensory grossly within normal limits. Five out of 5 muscle strength in all muscle groups. Normal speech. MDM Interpretation(s) Patient is a 27-year-old white female 36 weeks sees Kaylan Isaacs for care and presents complaining of low back pain today, no bleeding, leakage, contractions. heart rate tracing is reactive and her cervix is closed and posterior. She has no CVA tenderness only low back pain in the lumbar area. Urinalysis on dipstick on OB ED shows large leukocytes but otherwise is negative we will send the urine to the main lab for further complete UA and have the patient a prescription for Macrobid to go home with and take in the usual fashion Plan This patient will receive an IM shot of Demerol and Phenergan, can use Tylenol at home liberally to every 4 hours as needed, heating pad or hot bath low back pain. And bedrest over this weekend is advised Diagnosis Diagnosis: Primary Impression: Low back pain during in third trimester Additional Impression: UTI (urinary tract infection) in in third trimester Disposition: DISCHARGE HOME Condition: Stable Scripts Nitrofurantoin Monohydrate Macrocrystals (Macrobid) 100 Mg Cap 100 MG PO BID for Infection for 7 Days, #14 CAP 0 Refills Prov: Devon Gutierrez II, MD 09/09/17 Devon Gutierrez II, MD Sep 09, 2017 19:40
[2017-09-09] MEDS ORDERED: PROMETHAZINE INJ 25 MG/ML VIAL IM ONE (19:45)
[2017-09-09] MEDS ORDERED: MEPERIDINE HCL 50 MG/ML VIAL IM ONE (19:45)
[2017-09-09 22:50] LABS: BILIRUBIN, URINE NEG (NEG); BLOOD, URINE TRACE (NEG); GLUCOSE,URINE NEG (NEG); KETONE, URINE NEG (NEG); MUCUS URINE FEW /lpf (OCC); NITRITE,URINE NEG (NEG); PH, URINE 6.5 (5.0-8.5); SQUAMOUS EPITHELIAL CELL URINE 22 /hpf (0-5); URINE COLOR YELLOW (YELLW/STRAW); URINE LEUKOCYTE ESTERASE MOD (NEG)
== END 2017-09-09 20:45 | disposition home or self-care (01) ==
LOC: HOBED 19:05
DX: O26.893 Other specified pregnancy related conditions, third trimester (principal); M54.5 Low back pain; O23.43 Unspecified infection of urinary tract in pregnancy, third trimester; Z3A.36 36 weeks gestation of pregnancy
CPT/HCPCS: 59025; 81001; 99283; J2175

== ENCOUNTER 2017-09-16 11:02 | Emergency (ER) | payer MEDICAID ==
[~2017-09-16 11:02] MED LIST changes: +MACR100C2 PO; -UNIS25TA3 PO; -ZOFR4TAB3 SL
--- NOTE | 2017-09-16 11:38 | PD ---
HPI Chief Complaint Fall Date Seen: Sep 16, 2017 Time Seen: 11:34 Travel History International Travel<30 Days: No Contact w/Intl Traveler<30Days: No Known Affected Area: No History of Present Illness HPI 27-year-old who is at 37 weeks 2 days complains of falling down the stairs on her bottom after sliding slipping 2-3 days ago. Patient's had no untoward effects since that time and relates no injuries to that fall she denies any abdominal trauma and states the only thing that she hit was her bottom and she slid down a couple of steps, no vaginal bleeding or abdominal pain since then. She had a couple contractions yesterday and she would like to get her cervix checked but otherwise has had no antepartum complications during this . Weeks Gestation: 37 Para: 3 : 5 History Past Medical History Narrative Medical Seizure disorder as a young teenager nonsense and she is unmedicated for this Medical History: Denies Significant Hx Obstetric History Obstetric History Spontaneous vaginal delivery 3 Past Surgical History Surgical History: No Previous Surgery Family History Family History: Negative Social History Alcohol Use: No Tobacco Use: No Substance Abuse: No Allergies-Medications (Allergen,Severity, Reaction): Coded Allergies: No Known Allergies (Unverified , 04/14/17) Home Meds Active Scripts Nitrofurantoin Monohydrate Macrocrystals (Macrobid) 100 Mg Cap, 100 MG PO BID for Infection for 7 Days, #14 CAP 0 Refills Prov:Devon Gutierrez II, MD 09/09/17 Review of Systems Except as stated in HPI: all other systems reviewed are Neg Physical Exam Narrative GENERAL: Well-nourished, well-developed patient. SKIN: Warm and dry. HEAD: Normocephalic and atraumatic. EYES: No scleral icterus. No injection or drainage. ENT: No nasal drainage noted. Mucous membranes pink. Airway patent. NECK: Supple, trachea midline. No JVD. CARDIOVASCULAR: Regular rate and rhythm without murmurs, gallops, or rubs. RESPIRATORY: Breath sounds equal bilaterally. No accessory muscle use. ABDOMEN/GI: Abdomen soft, non-tender, bowel sounds present, no rebound, no guarding Gravid to [-36] weeks size Fundal Height: [-] GENITOURINARY: External Genitalia: intact and normal in appearance BUS glands: [-] Normal Cervix: [-] Posterior Dilatation: [-] Closed Effacement: [-] Long Station: [-] High Presentation: [-] Vertex Membranes: [intact or ruptured] intact Uterine Contractions: [-] Absent FHT's: Category: [-] 1 Baseline: [-] 140 Reactive: [-] Moderate Variability: [-] Moderate Decels: [-] Absent EXTREMITIES: No cyanosis or edema. BACK: Nontender without obvious deformity. No CVA tenderness. NEUROLOGICAL: Awake and alert. Motor and sensory grossly within normal limits. Five out of 5 muscle strength in all muscle groups. Normal speech. Data Data Vital Signs Reviewed: Yes [facility] Medical Record Reviewed: Yes Plan 27-year-old who is at 3738 weeks gestation with a normal exam History of a mild fall with no abdominal trauma no vaginal bleeding and a normal nonstress test without contractions Follow up with OB provider as scheduled Diagnosis Diagnosis: Primary Impression: 37 weeks gestation of Additional Impression: Fall (on) (from) other stairs and steps, initial encounter Disposition: 01 DISCHARGE HOME Jennifer Alford MD Sep 16, 2017 11:38
== END 2017-09-16 12:58 | disposition home or self-care (01) ==
LOC: HOBED 11:02
DX: O9A.213 Injury, poisoning and certain other consequences of external causes complicating pregnancy, third trimester (principal); Z3A.37 37 weeks gestation of pregnancy
CPT/HCPCS: 59025

== ENCOUNTER 2017-09-25 12:52 | Emergency (ER) | payer MEDICAID ==
--- NOTE | 2017-09-25 15:20 | PD ---
HPI Travel History International Travel<30 Days: No Contact w/Intl Traveler<30Days: No Known Affected Area: No History of Present Illness HPI 27yr at 38/4 weeks presents to the OB ED with pelvic pain and contractions. She is a patient of Kaylan Isaacs. She reports that she felt that "her vagina was on fire" yesterday and "felt she was being burned by a torch." She endorses vaginal swelling. She reports taht around 9-10 AM this morning, patient started to experience pressure-like pelvic pain and tiny contractions. She went to see roping machine tender and reports that she was dilated at 4cm. She was told to come to the OB ED if she wanted a second opinion. She endorse clear/whitish vaginal discharge. She denies itchiness and foul-smelling. She denies LOF, vaginal bleeding, dysuria, fevers, CP, and SOB. She is GBS +. History Past Medical History Narrative Medical Hx of seizures, last seizure was when she was 15yrs old Obstetric History Obstetric History 3 full term vaginal deliveries 1 miscarriage Past Surgical History Surgical History: No Previous Surgery Social History Alcohol Use: No Tobacco Use: Yes (Smoked 1/2 ppd during , quit 2 months ago per patient) Substance Abuse: No (endorses Marijuana use in the beginning of due to N/V) Allergies-Medications (Allergen,Severity, Reaction): Coded Allergies: No Known Allergies (Unverified , 09/16/17) Review of Systems Except as stated in HPI: all other systems reviewed are Neg Physical Exam Narrative GENERAL: Well-nourished, well-developed patient. SKIN: Warm and dry. HEAD: Normocephalic and atraumatic. EYES: No scleral icterus. No injection or drainage. ENT: No nasal drainage noted. Mucous membranes pink. Airway patent. NECK: Supple, trachea midline. No JVD. CARDIOVASCULAR: Regular rate and rhythm without murmurs, gallops, or rubs. RESPIRATORY: Breath sounds equal bilaterally. No accessory muscle use. ABDOMEN/GI: Abdomen soft, non-tender, bowel sounds present, no rebound, no guarding GENITOURINARY: Cervix: posterior Dilatation: 1-2 Effacement: 50% Station: -2 Presentation: - Membranes: intact Uterine Contractions: irregular FHT's: Category: 1 Baseline: 130s Reactive: yes Variability: moderate Decels: none EXTREMITIES: No cyanosis or edema. BACK: Nontender without obvious deformity. NEUROLOGICAL: Awake and alert. Motor and sensory grossly within normal limits. Five out of 5 muscle strength in all muscle groups. Normal speech. Data Data Vital Signs Reviewed: Yes Orders Orders Vital Signs (Adult) .ON ADMISSION (09/25/17 15:15) ^ Labor Status (09/25/17 15:15) Heart (09/25/17 15:15) ^ Non Stress Test (09/25/17 15:15) ^ Hydration (09/25/17 15:15) Group B Strep: Positive MDM Plan 27yr at 38/4 weeks presents to the OB ED with pelvic pain and contractions. -Intrauterine , category 1, reassuring -Cervix: 1-2cm, 50%, -2 -Amnisure negative -GBS positive -Advised patient to hydrate, heating pad and tylenol for pain -Return to the OB ED if contractions less than 5 min apart for 1 hr, LOF, VB -Follow-up with OB provider, Kaylan Manley and Dr. Monteiro Diagnosis Diagnosis: Primary Impression: Abdominal pain in Disposition: DISCHARGE HOME Condition: Stable Tiffanie Mitchell MD R1 September 25, 2017 15:20
== END 2017-09-25 16:08 | disposition home or self-care (01) ==
LOC: HOBED 12:52
DX: O26.899 Other specified pregnancy related conditions, unspecified trimester (principal); Z3A.38 38 weeks gestation of pregnancy
CPT/HCPCS: 59025; 84112

== ENCOUNTER 2017-09-30 02:02 | Emergency (ER) | payer MEDICAID ==
--- NOTE | 2017-09-30 03:28 | PD ---
HPI Chief Complaint ?LOF Date Seen: September 30, 2017 Time Seen: 03:23 Travel History International Travel<30 Days: No Contact w/Intl Traveler<30Days: No Known Affected Area: No History of Present Illness HPI 27y/o @ 39.wks. She has PNC with Kaylan Isaacs. She presents this evening for ?LOF. She denies a gush but states that she felt "wet" all day today. Denies ctx, VB. +FM. Weeks Gestation: 39 Para: 3 : 5 History Past Medical History Medical History: Denies Significant Hx Obstetric History Obstetric History x3 Past Surgical History Surgical History: No Previous Surgery Family History Family History: Negative Social History Alcohol Use: No Tobacco Use: No Substance Abuse: No Allergies-Medications (Allergen,Severity, Reaction): Coded Allergies: No Known Allergies (Unverified , 09/16/17) Narrative Medication none Review of Systems Except as stated in HPI: all other systems reviewed are Neg Physical Exam Narrative General: well developed, well nourished, no acute distress HEENT: normocephalic atraumatic, extraocular movements intact, neck supple Abdomen: soft, gravid, nontender, nondistended Uterus: fundus nontender Extremities: full range of motion Skin: normal coloration, no rashes, no suspicious skin lesions noted Neurologic: cranial nerves 2-12 grossly intact, normal muscle tone, normal gait Psychiatric: normal mood and affect, appropriate FHTs: 125, +accels, no decels, moderate variability, reactive Prosperity: quiet Cvx: deferred, amnisure negative Data Data Vital Signs Reviewed: Yes Orders Orders Vital Signs (Adult) .ON ADMISSION (09/30/17 03:23) ^ Labor Status (09/30/17 03:23) ^ Non Stress Test (09/30/17 03:23) Pamg-1 Test .ONCE (09/30/17 03:23) Ed Discharge Order (09/30/17 03:23) MDM Plan 27y/o @ 39.2wks. -- FHTs cat 1 -- toco quiet -- amnisure negative Dispo: stabel for d/c home with precautions Diagnosis Diagnosis: Primary Impression: 39 weeks gestation of Additional Impression: No leakage of amniotic fluid into vagina Disposition: DISCHARGE HOME Condition: Good Patient Instructions: General Instructions, Movement (ED) Additional Instructions: Return for contractions, decreased movement, vaginal leaking of fluid ( water breaking), or vaginal bleeding. Drink 8-10 cups of water per day. Keep follow-up appointment with OB provider as scheduled. Departure Forms: Tests/Procedures Mechelle Healy MD September 30, 2017 03:28
== END 2017-09-30 03:30 | disposition home or self-care (01) ==
LOC: HOBED 02:02
DX: O26.893 Other specified pregnancy related conditions, third trimester (principal); Z3A.39 39 weeks gestation of pregnancy
CPT/HCPCS: 59025; 84112

== ENCOUNTER 2017-10-02 12:24 | Emergency (ER) | payer MEDICAID ==
--- NOTE | 2017-10-02 13:33 | PD ---
HPI Chief Complaint Leaking fluid Date Seen: October 02, 2017 Time Seen: 13:28 Travel History International Travel<30 Days: No Contact w/Intl Traveler<30Days: No Known Affected Area: No History of Present Illness HPI Patient is 27-year-old black female at 39 weeks sees Kaylan Isaacs for care presents claiming a leakage of fluid per vagina, currently not leaking. amnisure is negative, NST is reactive no regular contractions seen Weeks Gestation: 39 Para: 3 : 5 History Obstetric History Obstetric History 3 vaginal deliveries 1 early loss Social History Alcohol Use: No Tobacco Use: No Substance Abuse: No Allergies-Medications (Allergen,Severity, Reaction): Coded Allergies: No Known Allergies (Unverified , 09/16/17) Review of Systems General / Constitutional: No: Fever, Weight Gain, Chills, Other Eyes: No: Diploplia, Blurred Vision, Visual changes, Pain, Photophobia HENT: No: Headaches, Vertigo, Lightheadedness Cardiovascular: No: Irregular Rhythm, Chest Pain or Discomfort, Palpitations, Tachycardia, Syncope, Varicosities, Edema, Cyanosis Respiratory: No: Cough, Short of Breath, Other Gastrointestinal: No: Nausea, Vomiting, Diarrhea Genitourinary: No: Decreased Urinary Output, Oliguria Musculoskeletal: No: Limited ROM, Weakness, Cramping, Edema, Pain Skin: No Rash, No Itching, No Dryness, No Lumps, No Change in Pigmentation, No Change in Nails, No Alopecia, No Lesions Neurologic: No: Weakness, Dizziness, Syncope, Focal Abnormalities, Coordination Problem, Headache, Slurred Speech, Seizures Psychiatric: No: Depression, Suicidal Ideations, Homicidal Ideation Endocrine: No: Heat Intolerance, Cold Intolerance, Polydipsia, Polyuria, Other Physical Exam Narrative GENERAL: Well-nourished, well-developed patient. SKIN: Warm and dry. HEAD: Normocephalic and atraumatic. EYES: No scleral icterus. No injection or drainage. ENT: No nasal drainage noted. Mucous membranes pink. Airway patent. NECK: Supple, trachea midline. No JVD. CARDIOVASCULAR: Regular rate and rhythm without murmurs, gallops, or rubs. RESPIRATORY: Breath sounds equal bilaterally. No accessory muscle use. BREASTS: Bilateral exam showed no masses , no retractions, no nipple discharge. ABDOMEN/GI: Abdomen soft, non-tender, bowel sounds present, no rebound, no guarding Gravid to [39-] weeks size Fundal Height: [39-] GENITOURINARY: External Genitalia: intact and normal in appearance BUS glands: [-] Cervix: [post-] Dilatation: [-3] Effacement: [60-] Station: [-3] Presentation: [vtx-] Membranes: [intact ] Uterine Contractions: [no reg -] FHT's: Category: [1-] Baseline: [-133] Reactive: [R-] Variability: [-mod] Decels: [none-] EXTREMITIES: No cyanosis or edema. BACK: Nontender without obvious deformity. No CVA tenderness. NEUROLOGICAL: Awake and alert. Motor and sensory grossly within normal limits. Five out of 5 muscle strength in all muscle groups. Normal speech. Data Data Labs amnisure negative MDM Interpretation(s) Patient is 27-year-old black female at 39 weeks presents complaining of leakage of fluid. Amnisure is negative. NST is reactive and not michael. Cervix is 3-4/60/-3 Plan Plan to discharge home with instructions given return for increasing fluid, bleeding, pain. Otherwise see Kaylan Isaacs on as scheduled Diagnosis Diagnosis: Primary Impression: No leakage of amniotic fluid into vagina Additional Impression: 39 weeks gestation of Disposition: DISCHARGE HOME Condition: Stable Devon Gutierrez II, MD October 02, 2017 13:33
== END 2017-10-02 14:57 | disposition home or self-care (01) ==
LOC: HOBED 12:24
DX: O26.893 Other specified pregnancy related conditions, third trimester (principal); Z3A.39 39 weeks gestation of pregnancy
CPT/HCPCS: 59025; 84112

== ENCOUNTER 2017-10-04 21:27 | Inpatient (IN) | payer MEDICAID ==
[~2017-10-04] VITALS: Ht 162.6 cm; Wt 100.0 kg
[2017-10-04] MEDS: LACTATED RINGER'S 1000 ML INJ 1,000 ML IV SCH ×2 (21:50→23:35)
[2017-10-04] MEDS ORDERED: LACTATED RINGER'S 1000 ML INJ 1,000 ML IV PRN (21:50)
[2017-10-04] MEDS ORDERED: LIDOCAINE HCL 1% 50 ML VIAL INFIL PRN (22:00)
[2017-10-04] MEDS ORDERED: PENICILLIN G POTASSIUM INJ 5,000,000 UNITS in SODIUM CHLORIDE 0.9% INJ 100 ML IV ONE (22:00)
[2017-10-04] MEDS ORDERED: OXYTOCIN 30 UNITS-500ML PREMIX 500 ML IV ONE (22:00)
[2017-10-04] MEDS ORDERED: LIDOCAINE HCL 1% 50 ML VIAL I-DERMAL PRN (22:00)
[2017-10-04] MEDS ORDERED: MINERAL OIL 10 ML VIAL TOPICAL PRN (22:00)
[2017-10-04] MEDS ORDERED: CITRIC ACID-SODIUM CITRATE LIQ 30 ML UDC PO SCH (22:00)
[2017-10-04] MEDS ORDERED: SODIUM CHLORID 0.9% 500 ML INJ 500 ML OTHER PRN (22:00)
--- NOTE | 2017-10-04 22:03 | PD ---
HPI Date Seen: October 04, 2017 Time Seen: 21:50 Travel History International Travel<30 Days: No Contact w/Intl Traveler<30Days: No Known Affected Area: No History of Present Illness HPI 27 yo at 39/6 weeks gestation presenting after SROM at 2044. Other than leaking fluid feels well. Denies VB, contractions. Good movement. History Past Medical History Medical History: Denies Significant Hx Obstetric History Obstetric History (one SAB) All prior deliveries vaginal Past Surgical History Surgical History: No Previous Surgery Family History Family History: Negative Social History Alcohol Use: No Tobacco Use: No (quit May 2017) Substance Abuse: No Allergies-Medications (Allergen,Severity, Reaction): Coded Allergies: No Known Allergies (Unverified , 09/16/17) Review of Systems Except as stated in HPI: all other systems reviewed are Neg Physical Exam Narrative GENERAL: Well-nourished, well-developed patient. SKIN: Warm and dry. HEAD: Normocephalic and atraumatic. EYES: No scleral icterus. No injection or drainage. ENT: No nasal drainage noted. Mucous membranes pink. Airway patent. NECK: Supple, trachea midline. No JVD. CARDIOVASCULAR: Regular rate and rhythm without murmurs, gallops, or rubs. RESPIRATORY: Breath sounds equal bilaterally. No accessory muscle use. ABDOMEN/GI: Abdomen soft, non-tender GENITOURINARY: Cervix: midposition Dilatation: 4 Effacement: 60 Station: -3 Presentation: V Membranes: SROM @ 2044 Uterine Contractions: none FHT's: Category: 1 Baseline: 130 Reactive: Y Variability: mod Decels: N EXTREMITIES: No cyanosis or edema. BACK: Nontender without obvious deformity. No CVA tenderness. NEUROLOGICAL: Awake and alert. Motor and sensory grossly within normal limits. Normal speech. Data Data Vital Signs Reviewed: Yes Orders Orders Ob (2e) Additional Admit Info (10/04/17 21:42) Admit To Inpatient (10/04/17 ) Code Status (10/04/17 21:50) Vital Signs (Adult) .Per protocol (10/04/17 21:50) Activity Oob Ad Sarah Beth (10/04/17 21:50) Heart (10/04/17 21:50) Amnioinfusion (10/04/17 21:50) Urinary Catheter Management .ONCE (10/04/17 21:50) Diet Liquid (10/05/17 Breakfast) Lactated Ringer's 1000 Ml Inj (Lr 1000 M (10/04/17 21:50) Lactated Ringer's 1000 Ml Inj (Lr 1000 M (10/04/17 21:50) Sodium Chlorid 0.9% 500 Ml Inj (Ns 500 M (10/04/17 22:00) Sodium Chlor 0.9% 1000 Ml Inj (Ns 1000 M (10/04/17 22:10) Lidocaine 1% Inj (50 Ml) (Xylocaine 1% I (10/04/17 22:00) Citric Acid-Sodium Citrate Liq (Bicitra (10/04/17 22:00) Fentanyl Inj (Fentanyl Inj) (10/04/17 22:00) Fentanyl Inj (Fentanyl Inj) (10/04/17 22:00) Penicillin G Potassium Inj (Pfizerpen-G (10/04/17 22:00) Penicillin G Potassium Inj (Pfizerpen-G (10/05/17 02:00) Complete Blood Count With Diff (10/04/17 21:50) Hold Clot (10/04/17 21:50) Abo/Rh Blood Type (10/04/17 21:50) Urinalysis - C+S If Indicated (10/04/17 21:50) Drug Screen, Random Urine (10/04/17 21:50) Resp Oxygen Non Rebreathe Mask (10/04/17 ) ^ Epidural / Intrathecal Infus (10/04/17 21:50) Oxytocin 30 Units-500ml Premix (Pitocin (10/04/17 22:00) Lidocaine 1% Inj (50 Ml) (Xylocaine 1% I (10/04/17 22:00) Light Mineral Oil (Muri-Lube Oil) (10/04/17 22:00) Inpatient Certification (10/04/17 ) Specimen To Be Collected PRN (10/04/17 21:50) Specimen To Be Collected PRN (10/04/17 21:50) Group B Strep: Positive MDM Medical Record Reviewed: Yes Narrative Course / MDM 27 yo at 39/6 wks presenting with SROM #1 IUP - cat 1 tracing, reassuring #2 SROM - admit to L&D, routine labor care. If not progressing will start pitocin 05/22/29 #3 GBS pos - PCN prophylaxis dw Adonay Hu MD R2 October 04, 2017 22:03
[2017-10-04] MEDS ORDERED: SODIUM CHLOR 0.9% 1000 ML INJ 1,000 ML OTHER PRN (22:10)
--- NOTE | 2017-10-04 22:12 | HHI.HP ---
History & Physical H&P HPI HPI Date Seen: October 04, 2017 Time Seen: 21:50 Travel History International Travel<30 Days: No Contact w/Intl Traveler<30Days: No Known Affected Area: No History of Present Illness HPI 27 yo at 39/6 weeks gestation presenting after SROM at 2044. Other than leaking fluid feels well. Denies VB, contractions. Good movement. History (Limited) History Past Medical History Medical History: Denies Significant Hx Obstetric History Obstetric History (one SAB) All prior deliveries vaginal Past Surgical History Surgical History: No Previous Surgery Family History Family History: Negative Social History Alcohol Use: No Tobacco Use: No (quit May 2017) Substance Abuse: No Allergies-Medications Allergies-Medications (Allergen,Severity, Reaction): Coded Allergies: No Known Allergies (Unverified , 09/16/17) ROS Review of Systems Except as stated in HPI: all other systems reviewed are Neg Physical Exam Physical Exam Narrative GENERAL: Well-nourished, well-developed patient. SKIN: Warm and dry. HEAD: Normocephalic and atraumatic. EYES: No scleral icterus. No injection or drainage. ENT: No nasal drainage noted. Mucous membranes pink. Airway patent. NECK: Supple, trachea midline. No JVD. CARDIOVASCULAR: Regular rate and rhythm without murmurs, gallops, or rubs. RESPIRATORY: Breath sounds equal bilaterally. No accessory muscle use. ABDOMEN/GI: Abdomen soft, non-tender GENITOURINARY: Cervix: midposition Dilatation: 4 Effacement: 60 Station: -3 Presentation: V Membranes: SROM @ 2044 Uterine Contractions: none FHT's: Category: 1 Baseline: 130 Reactive: Y Variability: mod Decels: N EXTREMITIES: No cyanosis or edema. BACK: Nontender without obvious deformity. No CVA tenderness. NEUROLOGICAL: Awake and alert. Motor and sensory grossly within normal limits. Normal speech. Data Data Data Vital Signs Reviewed: Yes Orders Orders Ob (2e) Additional Admit Info (10/04/17 21:42) Admit To Inpatient (10/04/17 ) Code Status (10/04/17 21:50) Vital Signs (Adult) .Per protocol (10/04/17 21:50) Activity Oob Ad Sarah Beth (10/04/17 21:50) Heart (10/04/17 21:50) Amnioinfusion (10/04/17 21:50) Urinary Catheter Management .ONCE (10/04/17 21:50) Diet Liquid (10/05/17 Breakfast) Lactated Ringer's 1000 Ml Inj (Lr 1000 M (10/04/17 21:50) Lactated Ringer's 1000 Ml Inj (Lr 1000 M (10/04/17 21:50) Sodium Chlorid 0.9% 500 Ml Inj (Ns 500 M (10/04/17 22:00) Sodium Chlor 0.9% 1000 Ml Inj (Ns 1000 M (10/04/17 22:10) Lidocaine 1% Inj (50 Ml) (Xylocaine 1% I (10/04/17 22:00) Citric Acid-Sodium Citrate Liq (Bicitra (10/04/17 22:00) Fentanyl Inj (Fentanyl Inj) (10/04/17 22:00) Fentanyl Inj (Fentanyl Inj) (10/04/17 22:00) Penicillin G Potassium Inj (Pfizerpen-G (10/04/17 22:00) Penicillin G Potassium Inj (Pfizerpen-G (10/05/17 02:00) Complete Blood Count With Diff (10/04/17 21:50) Hold Clot (10/04/17 21:50) Abo/Rh Blood Type (10/04/17 21:50) Urinalysis - C+S If Indicated (10/04/17 21:50) Drug Screen, Random Urine (10/04/17 21:50) Resp Oxygen Non Rebreathe Mask (10/04/17 ) ^ Epidural / Intrathecal Infus (10/04/17 21:50) Oxytocin 30 Units-500ml Premix (Pitocin (10/04/17 22:00) Lidocaine 1% Inj (50 Ml) (Xylocaine 1% I (10/04/17 22:00) Light Mineral Oil (Muri-Lube Oil) (10/04/17 22:00) Inpatient Certification (10/04/17 ) Specimen To Be Collected PRN (10/04/17 21:50) Specimen To Be Collected PRN (10/04/17 21:50) Group B Strep: Positive MDM MDM Medical Record Reviewed: Yes Narrative Course / MDM 27 yo at 39/6 wks presenting with SROM #1 IUP - cat 1 tracing, reassuring #2 SROM - admit to L&D, routine labor care. If not progressing will start pitocin 05/22/29 #3 GBS pos - PCN prophylaxis Adonay Hu MD R2 October 04, 2017 22:12
[2017-10-04 22:33] LABS: AUTOMATED NEUTROPHIL # 14.2 TH/MM3 (1.8-7.7); BASOPHIL % 0.1 % (0.0-2.0); EOSINOPHIL # 0.2 TH/MM3 (0-0.4); HEMATOCRIT 29.4 % (35.0-46.0); HEMOGLOBIN 9.8 GM/DL (11.6-15.3); LYMPH % 12.4 % (9.0-44.0); LYMPHOCYTE # 2.1 TH/MM3 (1.0-4.8); MEAN CELL VOLUME 81.8 FL (80.0-100.0); MEAN CORPUSCULAR HEMOGLOBIN 27.3 PG (27.0-34.0); MEAN CORPUSCULAR HGB CONC 33.3 % (32.0-36.0); MEAN PLATELET VOLUME 7.7 FL (7.0-11.0); MONO % 4.6 % (0.0-8.0); MONOCYTE # 0.8 TH/MM3 (0-0.9); NEUT % 81.9 % (16.0-70.0); PLATELET COUNT 348 TH/MM3 (150-450); RED BLOOD COUNT 3.59 MIL/MM3 (4.00-5.30); RED CELL DISTRIBUTION WIDTH 17.7 % (11.6-17.2); WHITE BLOOD COUNT 17.3 TH/MM3 (4.0-11.0)
[2017-10-04] MEDS ORDERED: NO MED (22:33)
[2017-10-04 22:54] LABS: BILIRUBIN, URINE NEG (NEG); BLOOD, URINE NEG (NEG); GLUCOSE,URINE NEG (NEG); KETONE, URINE NEG (NEG); MUCUS URINE FEW /lpf (OCC); NITRITE,URINE NEG (NEG); SQUAMOUS EPITHELIAL CELL URINE 1 /hpf (0-5); TRANSITIONAL EPI CELLS, URINE <1 /hpf; URINE COLOR YELLOW (YELLW/STRAW); URINE LEUKOCYTE ESTERASE MOD (NEG)
[2017-10-04 23:00] VITALS: PULSE 90
[2017-10-04 23:05] VITALS: PULSE 96
[2017-10-04 23:34] VITALS: RESP 18
--- NOTE | 2017-10-04 23:58 | HHI.PR ---
Subjective Remarks The patient was seen and evaluated. Discussed PROM and will consider oxytocin after receives first dose of GBS prophylaxis. Discussed risks of , risks/ indications of C/S. FHR reassuring. Objective Vital Signs Date Time Temp Pulse Resp B/P (MAP) Pulse Ox O2 Delivery O2 Flow Rate FiO2 10/04/17 23:34 18 10/04/17 23:05 96 10/04/17 23:00 90 Result Diagram: 10/04/17 2155 Veronica Cueto MD October 04, 2017 23:58
[2017-10-05] VITALS (136 sets, daily range): BP systolic 87–140; BP diastolic 38–107; PULSE 61–151; RESP 16–18; TEMP 97.9–98.9
[2017-10-05] MEDS: PENICILLIN G POTASSIUM INJ 2,500,000 UNITS in SODIUM CHLORIDE 0.9% INJ 100 ML IV SCH ×3 (02:46→11:00)
[2017-10-05] MEDS ORDERED: OXYTOCIN 30 UNITS-500ML PREMIX 500 ML IV PRN (03:15)
[2017-10-05] MEDS: LACTATED RINGER'S 1000 ML INJ 1,000 ML IV SCH (06:11)
[2017-10-05] MEDS ORDERED: ePHEDrine/NS 25 MG/5 ML SYRINGE ONE (11:42)
[2017-10-05] MEDS ORDERED: fentaNYL 2MCG-BUPIV 0.125% INJ 100 ML ONE (11:42)
[2017-10-05] MEDS ORDERED: LIDOCAINE 1.5%/EPINEPHrine 1:200,000 PF 5 ML AMP ONE (11:47)
[2017-10-05] MEDS ORDERED: LIDOCAINE HCL 1% PF 5 ML AMPULE ONE (11:48)
--- NOTE | 2017-10-05 12:21 | PD.LABORPN ---
Subjective Subjective Patient seen and examined this morning. No acute events overnight. Pt stated she is doing well, contraction pain is well tolerated. Endorses movement, contractions and leakage of fluid. Denies vaginal bleeding. Objective Vital Signs Vital Signs Date Time Temp Pulse Resp B/P (MAP) Pulse Ox O2 Delivery O2 Flow Rate FiO2 10/05/17 11:00 72 10/05/17 10:55 84 10/05/17 10:50 87 10/05/17 10:45 86 10/05/17 10:35 77 10/05/17 10:30 123 10/05/17 10:30 136/80 (98) 10/05/17 10:25 125 10/05/17 10:20 90 10/05/17 10:15 85 10/05/17 10:10 80 10/05/17 10:05 73 10/05/17 10:01 16 10/05/17 10:01 98.0 10/05/17 10:00 81 111/61 (78) 10/05/17 10:00 76 10/05/17 10:00 111 10/05/17 09:55 72 18 09:50 68 10/05/17 09:45 74 10/05/17 09:40 79 10/05/17 09:35 78 10/05/17 09:35 75 10/05/17 09:31 76 95/52 (66) 10/05/17 09:30 73 10/05/17 09:30 72 10/05/17 09:25 75 10/05/17 09:20 73 10/05/17 09:15 70 10/05/17 09:10 78 10/05/17 09:05 82 10/05/17 09:00 119/67 (84) 10/05/17 09:00 85 10/05/17 09:00 129 10/05/17 08:55 94 10/05/17 08:50 80 18 08:45 72 10/05/17 08:35 129 10/05/17 08:30 79 18 08:30 81 122/60 (80) 10/05/17 08:25 76 10/05/17 08:24 18 10/05/17 08:23 98.1 10/05/17 08:20 77 5/17/18 08:10 73 5/17/18 08:00 139 115/58 (77) 17/18 07:55 79 17/18 07:50 145 17/18 07:45 72 17/18 07:40 74 17/18 07:35 74 17/18 07:30 72 17/18 07:25 69 17/18 07:20 71 17/18 07:15 75 17/18 07:05 72 17/18 07:00 77 17/18 07:00 73 101/58 (72) 10/05/18 06:50 78 17/18 06:45 73 17/18 06:40 79 17/18 06:30 70 105/54 (71) 18 06:30 74 17/18 06:25 71 17/18 06:20 71 17/18 06:15 74 10/05/18 06:14 98.2 16 10/05/18 06:10 71 17/18 06:05 70 17/18 06:00 74 101/69 (80) 10/05/18 06:00 87 17/18 05:55 71 10/05/18 05:50 73 10/05/18 05:45 72 17/18 05:40 61 17/18 05:35 151 10/05/18 05:30 74 17/18 05:30 85 104/60 (75) 10/05/18 05:25 142 18 17/18 05:20 72 17/18 05:15 85 17/18 05:12 18 17/18 05:10 149 17/18 05:08 87 126/68 (87) 10/05/18 05:05 111 10/05/18 05:00 121 17/18 04:45 18 17/18 04:40 82 17/18 04:35 82 17/18 04:30 80 106/61 (76) 17/18 04:30 79 17/18 04:05 82 18 17/18 04:00 77 119/61 (80) 17/18 04:00 84 5/17/18 03:55 99 5/17/18 03:50 83 Objective GENERAL: Well-nourished, well-developed patient. SKIN: Warm and dry. HEAD: Normocephalic and atraumatic. EYES: No scleral icterus. No injection or drainage. ENT: No nasal drainage noted. Mucous membranes pink. Airway patent. NECK: Supple, trachea midline. No JVD. CARDIOVASCULAR: Regular rate and rhythm without murmurs, gallops, or rubs. RESPIRATORY: Breath sounds equal bilaterally. No accessory muscle use. ABDOMEN/GI: Abdomen soft, non-tender Pelvic Exam: Dilatation: 4-5 Effacement:60 Station: -3 Membranes: intact Uterine Contractions: FHT's: Category: 2 Baseline: 130 Reactive: yes Variability: moderate Decels: couple of variables Weeks Gestation: 40 Medical induction of labor?: Yes Artificial rupture of membrane: No Assessment/Plan Problem List: (1) 40 weeks gestation of ICD Codes: Z3A.40 - 40 weeks gestation of Plan: 27 yo at 40wks presenting with SROM yesterday 10/04. IUP at 40wks 1. Pt is GBS positive, GBS prophylaxis treatment started yesterday with penicillin G 2. continue to monitor VS and heart tracing 3. Category 2 with moderate variability and accelerations, reassuring 4. continue to assess progression of labor DW Dr. Healy (2) SROM (spontaneous rupture of membranes) Plan: see plan above Grace Sanchez MD, R1 October 05, 2017 12:21
--- NOTE | 2017-10-05 15:33 | PD.OB.DELI ---
Weeks gestation: 40 Pt started active labor?: Yes Medical induction of labor?: Yes Artificial rupture of membrane: No Anesthesia: Epidural Episiotomy: None Vaginal Delivery: Normal, Spontaneous Presentation: Occiput anterior Nuchal Cord: None Delayed cord clamping (45 sec): Yes Infant: Male Delivery date: October 05, 2017 Delivery time: 15:21 One Minute : 9 Five Minute : 9 Weight: 3575g Placenta: Spontaneous delivery, Intact, 3 vessel cord Laceration: No lacerations Estimated blood loss: 200 Mechelle Healy MD October 05, 2017 15:33
[2017-10-05] MEDS ORDERED: fentaNYL 2MCG-BUPIV 0.125% 100 ML EPIDURAL PRN (15:45)
[2017-10-05] MEDS ORDERED: ALUMINUM/MAGNESIUM/SIMETH 30 ML CUP PO PRN (15:45)
[2017-10-05] MEDS ORDERED: WITCH HAZEL 50%/GLYCERIN 12.5% 40 PAD JAR TOPICAL PRN (15:45)
[2017-10-05] MEDS ORDERED: ePHEDrine/NS 25 MG/5 ML SYRINGE IV PUSH PRN (15:45)
[2017-10-05] MEDS ORDERED: DOCUSATE SODIUM 50 MG/SENNA 8.6 MG TAB PO PRN (15:45)
[2017-10-05] MEDS ORDERED: ONDANSETRON ODT 4 MG TAB PO PRN (15:45)
[2017-10-05] MEDS ORDERED: NO SYSTEM NARCOTICS PRN (15:45)
[2017-10-05] MEDS ORDERED: ZOLPIDEM TARTRATE 5 MG TAB PO PRN (15:45)
[2017-10-05] MEDS ORDERED: BENZOCAINE 20% TOPICAL SPRAY 60 ML CAN TOPICAL PRN (15:45)
[2017-10-05] MEDS ORDERED: DO NOT ADMINISTER ANTICOAGULANTS PRN (15:45)
[2017-10-05] MEDS ORDERED: SODIUM CHLORIDE 0.9% FLUSH 10 ML FLUSH IV FLUSH PRN (15:45)
[2017-10-05] MEDS ORDERED: OXYTOCIN 30 UNITS-500ML PREMIX 500 ML IV SCH (15:45)
[2017-10-05] MEDS ORDERED: ACETAMINOPHEN 325 MG TAB PO PRN (15:45)
[2017-10-05] MEDS ORDERED: MEASLES, MUMPS, RUBELLA VACCINE 0.5 ML VIAL SQ ONE (16:00)
[2017-10-05] MEDS ORDERED: DIPHTH/TETANUS/ACEL PERTUSSIS (BOOSTER) 0.5 ML VIAL/PFS IM ONE (16:00)
[2017-10-05] MEDS: IBUPROFEN 800 MG TAB PO PRN (17:28)
[2017-10-05] MEDS ORDERED: SODIUM CHLORIDE 0.9% FLUSH 10 ML FLUSH IV FLUSH SCH (21:00)
[2017-10-06] MEDS: IBUPROFEN 800 MG TAB PO PRN ×3 (00:55→16:40)
[2017-10-06 07:35] VITALS: BP 123/60; PULSE 77; RESP 16; TEMP 98.4
--- NOTE | 2017-10-06 08:32 | HHI.OB ---
Subjective Post Day: 1 Remarks Patient seen and examined this morning. AFVSS overnight. day #1. Patient states her pain is well controlled. Decreased lochia. Denies dysuria. No breast tenderness. Appetite good. No nausea or vomiting. Ambulating well without reported issues. Denies fevers or chills, chest pain, dyspnea, calf pain , or cough. She otherwise has no other complaints or concerns this morning. Objective Vitals/I&O Vital Signs Date Time Temp Pulse Resp B/P (MAP) Pulse Ox O2 Delivery O2 Flow Rate FiO2 10/06/17 07:35 98.4 77 16 123/60 (81) 10/05/17 21:04 98.9 78 18 109/63 (78) 10/05/17 16:30 17 10/05/17 16:15 84 136/66 (89) 10/05/17 16:12 18 10/05/17 16:00 77 128/84 (99) 10/05/17 15:46 80 137/68 (91) 10/05/17 15:40 18 10/05/17 15:38 91 133/67 (89) 10/05/17 15:00 65 112/49 (70) 10/05/17 14:46 71 108/54 (72) 10/05/17 14:34 18 10/05/17 14:31 71 115/50 (71) 10/05/17 14:16 73 104/53 (70) 10/05/17 14:01 86 127/63 (84) 10/05/17 13:46 76 125/59 (81) 10/05/17 13:30 71 128/56 (80) 10/05/17 13:00 77 115/56 (75) 10/05/17 12:55 93 109/65 (80) 10/05/17 12:50 91 99/47 (64) 10/05/17 12:45 90 87/38 (54) 10/05/17 12:40 89 98/53 (68) 10/05/17 12:31 75 120/51 (74) 10/05/17 12:30 81 114/54 (74) 10/05/17 12:25 78 10/05/17 12:20 88 118/63 (81) 10/05/17 12:16 89 129/107 (114) 18 12:15 89 10/05/18 12:10 92 18 12:10 91 140/61 (87) 18 12:05 93 18 12:00 139/65 (89) 18 12:00 93 18 11:55 90 18 11:55 127/65 (85) 18 11:00 72 18 10:55 84 18 10:50 87 18 10:45 86 18 10:35 77 10/05/18 10:30 123 18 10:30 136/80 (98) 10/05/17 10:25 125 18 10:20 90 18 10:15 85 10/05/18 10:10 80 18 10:05 73 18 10:01 16 10/05/17 10:01 98.0 18 10:00 81 111/61 (78) 18 10:00 76 18 10:00 111 18 09:55 72 10/05/18 09:50 68 10/05/18 09:45 74 10/05/18 09:40 79 10/05/18 09:35 78 10/05/18 09:35 75 17/18 09:31 76 95/52 (66) 10/05/17 09:30 73 18 09:30 72 10/05/18 09:25 75 10/05/18 09:20 73 10/05/18 09:15 70 17/18 09:10 78 10/05/18 09:05 82 17/18 09:00 119/67 (84) 18 09:00 85 18 09:00 129 18 08:55 94 17/18 08:50 80 17/18 08:45 72 17/18 08:35 129 17/18 08:30 79 17/18 08:30 81 122/60 (80) Objective Remarks GENERAL: Well-nourished, well-developed patient. CARDIOVASCULAR: Regular rate and rhythm without murmurs, gallops, or rubs. RESPIRATORY: Breath sounds equal bilaterally. No accessory muscle use. ABDOMEN/GI: Abdomen soft, non-tender. Fundus: Firm, non-tender at umbilicus. GENITOURINARY: Light to moderate bleeding. EXTREMITIES: No cyanosis or edema, non-tender, without signs of DVT. Medications and IVs Current Medications Medications (Trade) Dose Ordered Sig/Belle Route Start Time Stop Time Status Last Admin Lactated Ringer's 1,000 ml @ 125 mls/hr Q8H IV 10/04/17 21:50 10/05/17 06:11 Lactated Ringer's 1,000 ml @ 3,000 mls/hr Q20M PRN IV 10/04/17 21:50 Sodium Chloride 500 ml @ 1,000 mls/hr ONCE PRN OTHER 10/04/17 22:00 10/11/17 21:59 Sodium Chloride 1,000 ml @ 100 mls/hr Q10H PRN OTHER 10/04/17 22:10 (Xylocaine 1% Inj (50 ml)) 0.1 ml UNSCH X1 PRN I-DERMAL 10/04/17 22:00 10/07/17 21:59 (Bicitra Liq) 30 ml MELTER HELPER PO 10/04/17 22:00 10/08/17 21:59 (fentaNYL INJ) 50 mcg Q1H PRN IV PUSH 10/04/17 22:00 10/05/17 05:20 (fentaNYL INJ) 100 mcg Q1H PRN IV PUSH 10/04/17 22:00 Penicillin G Potassium 6297039 units/Sodium Chloride 100 ml @ 200 mls/hr Q4H IV 10/05/17 02:00 10/05/17 11:00 (Xylocaine 1% Inj (50 ml)) 10 ml UNSCH X1 PRN INFIL 10/04/17 22:00 10/06/17 21:59 (Muri-Lube Oil) 10 ml UNSCH PRN TOPICAL 10/04/17 22:00 Oxytocin 500 ml @ 0 mls/hr TITRATE PRN IV 10/05/17 03:15 (NS Flush) 2 ml BID IV FLUSH 10/05/17 21:00 10/06/17 08:21 (NS Flush) 2 ml UNSCH PRN IV FLUSH 10/05/17 15:45 (Tylenol) 650 mg Q4H PRN PO 10/05/17 15:45 (Motrin) 800 mg Q8H PRN PO 10/05/17 15:45 10/06/17 08:21 (Americaine 20% Top Spr) 1 spray Q4H PRN TOPICAL 10/05/17 15:45 (Tucks Pads) 1 applic QID PRN TOPICAL 10/05/17 15:45 (Joana-Colace) 2 tab Q12H PRN PO 10/05/17 15:45 (Ambien) 5 mg HS PRN PO 10/05/17 15:45 (Mag-Al Plus Susp Liq) 15 ml Q8H PRN PO 10/05/17 15:45 (Zofran Odt) 4 mg Q6H PRN PO 10/05/17 15:45 [place] [place] No systemic narcotics to be given except... UNSCH PRN .XX 10/05/17 15:45 10/06/17 15:44 [place] [place] DO NOT ADMINISTER ANY ANTICOAGUL... UNSCH PRN .XX 10/05/17 15:45 10/06/17 15:44 Fentanyl/ Bupivacaine HCl 100 ml @ 0 mls/hr TITRATE PRN EPIDURAL 10/05/17 15:45 (ePHEDrine/NS 25 MG/5 ML SYR) 10 mg UNSCH PRN IV PUSH 10/05/17 15:45 10/06/17 15:44 Assessment/Plan Problem List: (1) care following vaginal delivery ICD Codes: Z39.2 - Encounter for routine follow-up Assessment and Plan 27 year old now PPD#1. 1. Care - AFVSS - Encouraged OOB, as tolerated - Motrin prn pain - Advised pelvic rest x 6 weeks - Contraception: Discussed with patient this morning, patient still considering her options and states she will follow up with her outpatient provider - Will f/u with OB provider within 6 weeks [facility] hospitalist Discharge Planning Stable for discharge home today or tomorrow pending stable clinical course Matthew Monteiro MD R2 October 06, 2017 08:32
[2017-10-06] MEDS ORDERED: IBUP1TAB7 PO (09:00)
[2017-10-06] MEDS ORDERED: PERI PO (09:00)
--- NOTE | 2017-10-06 09:00 | HHI.DCPOC ---
Discharge Care Plan Diagnosis: (1) care following vaginal delivery Report Symptoms to Your Doctor -Temperature above 100.5 degrees -Redness, of incision or excessive or foul smelling drainage -Unusual pain or calf pain -Increased vaginal bleeding -Painful or difficulty urinating -Feelings of extreme sadness or anxiety after 2 weeks Goals to Promote Your Health * To maintain your health at the optimal level, follow-up with your OB provider within 6 weeks after hospital discharge. Directions to Meet Your Goals Take your medications as prescribed Follow your dietary instruction Follow activity as directed Ensure plenty of rest for recovery Drink fluids for hydration Keep your appointments as scheduled Take your immunizations and boosters as scheduled If your symptoms worsen call your PCP, if no PCP go to Urgent Care Center or Emergency Room Smoking is Dangerous to Your Health. Avoid second hand smoke Call the 24-hour crisis hotline for domestic abuse at Matthew Monteiro MD R2 October 06, 2017 09:00
[2017-10-06] MEDS: PENICILLIN G POTASSIUM INJ 2,500,000 UNITS in SODIUM CHLORIDE 0.9% INJ 100 ML IV SCH ×2 (09:38→09:56)
[2017-10-06] MEDS: LACTATED RINGER'S 1000 ML INJ 1,000 ML IV SCH ×2 (09:38→15:09)
[2017-10-06 20:26] VITALS: BP 133/69; PULSE 77; RESP 18; TEMP 98.1
[2017-10-07] MEDS: IBUPROFEN 800 MG TAB PO PRN (02:38)
[2017-10-07 08:04] VITALS: BP 121/71; PULSE 68; RESP 15; TEMP 98.3; O2SAT 98
[2017-10-07 08:05] VITALS: RESP 18
--- NOTE | 2017-10-07 08:38 | HHI.OB ---
Subjective Post Day: 2 Remarks Patient seen and examined this morning. AFVSS overnight. day #2. Patient states her pain is well controlled. Decreased lochia. Denies dysuria. No breast tenderness. Appetite good. No nausea or vomiting. Ambulating well. Denies fevers or chills, chest pain, dyspnea, calf pain, cough. She otherwise has no complaints or concerns this morning. Objective Vitals/I&O Vital Signs Date Time Temp Pulse Resp B/P (MAP) Pulse Ox O2 Delivery O2 Flow Rate FiO2 10/07/17 08:05 18 10/07/17 08:04 68 15 121/71 (88) 10/07/17 08:04 98.3 98 10/06/17 20:26 98.1 77 18 133/69 (90) Objective Remarks GENERAL: Well-nourished, well-developed patient. CARDIOVASCULAR: Regular rate and rhythm without murmurs, gallops, or rubs. RESPIRATORY: Breath sounds equal bilaterally. No accessory muscle use. ABDOMEN/GI: Abdomen soft, non-tender. Fundus: Firm, non-tender at umbilicus. GENITOURINARY: Light to moderate bleeding. EXTREMITIES: No cyanosis or edema, non-tender, without signs of DVT. Medications and IVs Current Medications Medications (Trade) Dose Ordered Sig/Belle Route Start Time Stop Time Status Last Admin Lactated Ringer's 1,000 ml @ 125 mls/hr Q8H IV 10/04/17 21:50 10/05/17 06:11 Lactated Ringer's 1,000 ml @ 3,000 mls/hr Q20M PRN IV 10/04/17 21:50 Sodium Chloride 500 ml @ 1,000 mls/hr ONCE PRN OTHER 10/04/17 22:00 10/11/17 21:59 Sodium Chloride 1,000 ml @ 100 mls/hr Q10H PRN OTHER 10/04/17 22:10 (Xylocaine 1% Inj (50 ml)) 0.1 ml UNSCH X1 PRN I-DERMAL 10/04/17 22:00 10/07/17 21:59 (Bicitra Liq) 30 ml LABORATORY COORDINATOR PO 10/04/17 22:00 10/08/17 21:59 (fentaNYL INJ) 50 mcg Q1H PRN IV PUSH 10/04/17 22:00 10/05/17 05:20 (fentaNYL INJ) 100 mcg Q1H PRN IV PUSH 10/04/17 22:00 Penicillin G Potassium [id number] units/Sodium Chloride 100 ml @ 200 mls/hr Q4H IV 10/05/17 02:00 10/05/17 11:00 (Muri-Lube Oil) 10 ml UNSCH PRN TOPICAL 10/04/17 22:00 Oxytocin 500 ml @ 0 mls/hr TITRATE PRN IV 10/05/17 03:15 (NS Flush) 2 ml BID IV FLUSH 10/05/17 21:00 10/06/17 08:21 (NS Flush) 2 ml UNSCH PRN IV FLUSH 10/05/17 15:45 (Tylenol) 650 mg Q4H PRN PO 10/05/17 15:45 (Motrin) 800 mg Q8H PRN PO 10/05/17 15:45 10/07/17 02:38 (Americaine 20% Top Spr) 1 spray Q4H PRN TOPICAL 10/05/17 15:45 (Tucks Pads) 1 applic QID PRN TOPICAL 10/05/17 15:45 (Joana-Colace) 2 tab Q12H PRN PO 10/05/17 15:45 (Ambien) 5 mg HS PRN PO 10/05/17 15:45 10/07/17 02:38 (Mag-Al Plus Susp Liq) 15 ml Q8H PRN PO 10/05/17 15:45 (Zofran Odt) 4 mg Q6H PRN PO 10/05/17 15:45 Fentanyl/ Bupivacaine HCl 100 ml @ 0 mls/hr TITRATE PRN EPIDURAL 10/05/17 15:45 Assessment/Plan Problem List: (1) care following vaginal delivery ICD Codes: Z39.2 - Encounter for routine follow-up Assessment and Plan 27 year old now PPD#2. 1. Care - AFVSS - Encouraged OOB, as tolerated - Motrin prn pain - Advised pelvic rest x 6 weeks - Contraception: Discussed with patient this morning, patient still considering her options and states she will follow up with her outpatient provider - Will f/u with OB provider within 6 weeks ricardo [place] Discharge Planning Stable for discharge home today Matthew Monteiro MD R2 October 07, 2017 08:38
== END 2017-10-07 11:41 | disposition home or self-care (01) | DRG 775 ==
LOC: HOBED 21:27 → H2EB 21:45 → H1EA 10-05 16:55
PROVIDERS: ADMIT Obstetrics & Gynecology; ATTEND Obstetrics & Gynecology
PROC: 3E033VJ Introduction of Other Hormone into Peripheral Vein, Percutaneous Approach (ICD-10-PCS; 2017-10-04)
PROC: 10E0XZZ Delivery of Products of Conception, External Approach (ICD-10-PCS; principal; 2017-10-05)
DX: O42.02 Full-term premature rupture of membranes, onset of labor within 24 hours of rupture (principal); O99.824 Streptococcus B carrier state complicating childbirth; Z37.0 Single live birth; Z3A.39 39 weeks gestation of pregnancy
CPT/HCPCS: 59025; 80307; 81001; 84112; 85025; 86900; 86901; 87086; 90715; 99283; J2540; J3010; J7120